=== PATIENT | male | born 1935 | race Caucasian/White ===

== ENCOUNTER → 2016-07-01 | Outpatient (CLI) | payer BC ==
[~2016-07-01] MED LIST: ACET-1257 PO; ALBUAER19 INH; ALUMSUS2; ASPCH81X PO; ATOR-24 PO; CALC500C3 PO; DUTA1CAP PO; DUTACAP PO; DXY100 PO; ELQ25 PO; FLNIN NAE; FLNIN/ NAE; HYDR25TA5 PO; LPR25 PO; LSX20 PO; MULT-506 PO; PANT40TA PO; POTA1CAP53 PO
== END | disposition home or self-care (01) ==
LOC: C.LABSPEC 11:07
PROVIDERS: ATTEND Internal Medicine Geriatric Medicine
DX: T81.4XXA Infection following a procedure, initial encounter (principal); X58.XXXA Exposure to other specified factors, initial encounter

== ENCOUNTER → 2016-07-17 | Outpatient (CLI) | payer BC ==
[2016-07-17 11:23] LABS: BASO % 0.5 %; BASO ABS # 0.03 K/uL (0-0.2); COMPLETE YES; EOS % 0.8 %; HEMATOCRIT 39.6 % (42-52); IG% 0.3 %; LYMPH ABS # 1.44 K/uL (1.2-3.4); MEAN CORPUSCULAR HEMOGLOBIN 26.7 pg (25-34); MEAN CORPUSCULAR HGB CONC 34.6 g/dl (32-36); MEAN PLATELET VOLUME 10.3 fL (7.4-10.4); MONO % 14.5 %; NEUT % 59.9 %; PLATELET COUNT 249 K/uL (130-400); RED BLOOD COUNT 5.14 M/uL (4.7-6.1); WHITE BLOOD COUNT 6.01 K/uL (4.8-10.8)
[2016-07-17 12:35] LABS: ALT/SGPT 28 U/L (12-78); BLOOD UREA NITROGEN 17 mg/dl (7-18); BUN/CREATININE RATIO 15.5 (10-20); CALCIUM 8.9 mg/dl (8.5-10.1); CARBON DIOXIDE 25 mmol/L (21-32); CHLORIDE 101 mmol/L (98-107); CHOLESTEROL 151 mg/dl (0-200); GLUCOSE 80 mg/dl (70-99); POTASSIUM 3.7 mmol/L (3.5-5.1); SODIUM 138 mmol/L (136-145); TRIGLYCERIDES 85 mg/dl (0-150); VERY LOW DENSITY LIPOPROT CALC 17 mg/dl
[2016-07-17 12:45] LABS: ALB/GLOB RATIO 1.1 (0.9-2); ALKALINE PHOSPHATASE 76 U/L (45-117); AST/SGOT 25 U/L (15-37); HDL CHOLESTEROL 50 mg/dl; LDL CHOLESTEROL CALCULATED 84 mg/dl
--- NOTE | 2016-07-28 13:12 | CODING QUERY MEDICAL NECESSITY ---
SUPPORTING DIAGNOSIS NEEDED A supporting diagnosis is required for the test/procedure performed on this patient in order for us to be reimbursed by the patient's insurance. Please provide a supporting diagnosis for the following test/procedure listed below next to the test name along with your signature. *If there is no additional diagnosis for this patient that would support the following test/procedure please document that below next to the test/procedure. Test(s)/Procedure(s) that require a supporting diagnosis: DOS 07/17 * Vitamin D DIAGNOSIS: * Vitamin B12 DIAGNOSIS: Provider Signature: Date: Thank you Magda Higgins Health Information Management Once completed, please kindly fax back to [phone] For questions please call [phone]
== END | disposition home or self-care (01) ==
LOC: C.LAB 10:29
PROVIDERS: ATTEND Internal Medicine Geriatric Medicine
DX: M10.9 Gout, unspecified (principal); I10 Essential (primary) hypertension; E78.5 Hyperlipidemia, unspecified; G62.9 Polyneuropathy, unspecified; I48.0 Paroxysmal atrial fibrillation; Z79.01 Long term (current) use of anticoagulants

== ENCOUNTER → 2016-07-19 | Outpatient (CLI) | payer BC ==
[2016-07-19 12:15] LABS: THYROID STIMULATING HORMONE 5.5 uIu/ml (0.300-4.500)
== END | disposition home or self-care (01) ==
LOC: C.LABBC 09:02
PROVIDERS: ATTEND Internal Medicine Geriatric Medicine
DX: R94.6 Abnormal results of thyroid function studies (principal)

== ENCOUNTER → 2016-10-07 | Outpatient (CLI) | payer BC ==
[2016-10-07 12:51] LABS: BASO % 0.8 %; BASO ABS # 0.05 K/uL (0-0.2); COMPLETE YES; EOS % 0.8 %; HEMATOCRIT 41.3 % (42-52); IG% 0.2 %; LYMPH % 24.7 %; LYMPH ABS # 1.47 K/uL (1.2-3.4); MEAN CELL VOLUME 80.7 fL (80-100); MEAN CORPUSCULAR HEMOGLOBIN 28.5 pg (25-34); MEAN CORPUSCULAR HGB CONC 35.4 g/dl (32-36); MEAN PLATELET VOLUME 10.6 fL (7.4-10.4); NEUT % 58.5 %; PLATELET COUNT 259 K/uL (130-400); RED BLOOD COUNT 5.12 M/uL (4.7-6.1); WHITE BLOOD COUNT 5.95 K/uL (4.8-10.8)
[2016-10-07 17:50] LABS: BLOOD UREA NITROGEN 14 mg/dl (7-18); BUN/CREATININE RATIO 14.9 (10-20); CALCIUM 8.6 mg/dl (8.5-10.1); CARBON DIOXIDE 29 mmol/L (21-32); CHLORIDE 101 mmol/L (98-107); CREATININE 0.93 mg/dl (0.60-1.40); GLUCOSE 91 mg/dl (70-99); SODIUM 137 mmol/L (136-145); URIC ACID 8.3 mg/dl (2.6-7.2)
== END | disposition home or self-care (01) ==
LOC: C.LABPBG 11:07
PROVIDERS: ATTEND Internal Medicine Geriatric Medicine
DX: M10.9 Gout, unspecified (principal); M19.90 Unspecified osteoarthritis, unspecified site; I48.0 Paroxysmal atrial fibrillation; I10 Essential (primary) hypertension; R94.6 Abnormal results of thyroid function studies

== ENCOUNTER → 2016-10-18 | Outpatient (CLI) | payer BC ==
--- NOTE | 2016-10-18 09:44 | DIAGNOSTIC IMAGING REPORT ---
CHEST 2 VIEWS ROUTINE CLINICAL HISTORY: COUGH COMPARISON STUDY: 04/14/2016 FINDINGS: The heart is the upper limits of normal in size. There are postsurgical changes of a midline sternotomy. There are postsurgical changes present within the cervical spine. There are postsurgical changes in the lumbar spine. There is no failure. There is no lobar consolidation. There is minor basilar atelectasis/scarring. No pleural effusions are visualized.[ IMPRESSION: No active disease in the chest. Electronically signed by: Shyam العراقي M.D. 10/18/2016 9:42 AM Dictated Date/Time: 10/18/2016 9:41 AM
== END | disposition home or self-care (01) ==
LOC: C.RADBC 09:11
PROVIDERS: ATTEND Internal Medicine
DX: J44.1 Chronic obstructive pulmonary disease with (acute) exacerbation (principal)

== ENCOUNTER 2016-12-29 21:57 | Emergency (ER) | payer BC ==
[~2016-12-29] VITALS: Ht 180.3 cm; Wt 107.4 kg
[~2016-12-29 21:57] MED LIST changes: -DUTA1CAP PO; -DXY100 PO; -FLNIN/ NAE; -LSX20 PO; -POTA1CAP53 PO
[2016-12-29 22:04] VITALS: Ht 180.3 cm; Wt 107.4 kg
[2016-12-29] MEDS ORDERED: SODIUM CHLORIDE 0.9% 1000ML 1,000 ML IV STA (22:14)
[2016-12-29 22:19] VITALS: O2SAT 93
[2016-12-29] MEDS ORDERED: ACETAMINOPHEN 500 MG TAB PO STA (22:37)
[2016-12-29] MEDS ORDERED: DUTA1CAP PO (22:38)
[2016-12-29] MEDS ORDERED: FLNIN/ NAE (22:38)
[2016-12-29] MEDS ORDERED: POTA1CAP53 PO (22:54)
[2016-12-29] MEDS ORDERED: LSX20 PO (22:54)
[2016-12-29 22:59] LABS: BASO % 0.8 %; BASO ABS # 0.05 K/uL (0-0.2); COMPLETE YES; HEMATOCRIT 39.7 % (42-52); IG% 0.3 %; LYMPH % 15.7 %; LYMPH ABS # 0.96 K/uL (1.2-3.4); MEAN CELL VOLUME 84.5 fL (80-100); MEAN CORPUSCULAR HEMOGLOBIN 29.6 pg (25-34); MEAN PLATELET VOLUME 10.7 fL (7.4-10.4); MONO % 15.2 %; PLATELET COUNT 202 K/uL (130-400); WHITE BLOOD COUNT 6.11 K/uL (4.8-10.8)
[2016-12-29 23:11] LABS: INR 1.3 (0.9-1.1); PARTIAL THROMBOPLASTIN RATIO 1.1; PROTHROMBIN TIME (PATIENT) 13.8 SECONDS (9.0-12.0)
[2016-12-29 23:19] LABS: ALT/SGPT 24 U/L (12-78); BLOOD UREA NITROGEN 13 mg/dl (7-18); BUN/CREATININE RATIO 13.5 (10-20); CARBON DIOXIDE 29 mmol/L (21-32); CHLORIDE 98 mmol/L (98-107); CREATININE 0.97 mg/dl (0.60-1.40); GLUCOSE 102 mg/dl (70-99); MAGNESIUM 1.9 mg/dl (1.8-2.4); POTASSIUM 3.1 mmol/L (3.5-5.1); SODIUM 136 mmol/L (136-145)
[2016-12-29 23:27] LABS: ALKALINE PHOSPHATASE 79 U/L (45-117); AST/SGOT 19 U/L (15-37); CKMB/CK RATIO 0.6 (0-3.0)
[2016-12-30 00:39] VITALS: TEMP 37.1
[2016-12-30 00:39] LABS: LYME DISEASE AB IGG NEG (NEG); LYME DISEASE AB IGM NEG (NEG)
[2016-12-30] MEDS ORDERED: SODIUM CHLORIDE 0.9% 500ML 500 ML IV STA (00:44)
[2016-12-30 01:15] LABS: URINE APPEARANCE CLEAR (CLEAR); URINE COLOR DK YELLOW; URINE EPITHELIAL CELL AUTO >30 /lpf (0-5); URINE NITRITE NEG (NEG); URINE SPECIFIC GRAVITY 1.023 (1.000-1.030); UROBILINOGEN POS (NEG)
[2016-12-30 01:19] LABS: MANUAL MICROSCOPIC REQUIRED? NO; REVIEW REQ? NO; URINE BILIRUBIN NEG (NEG)
[2016-12-30] MEDS ORDERED: EMPTY 8 DRAM VIAL ONE (01:27)
[2016-12-30] MEDS ORDERED: DOXYCYCLINE HYCLATE 100 MG CAP PO ONE ×2 (01:30)
[2016-12-30 01:31] VITALS: BP 124/77; PULSE 80; O2SAT 93
[2016-12-30] MEDS ORDERED: POTASSIUM CHLORIDE 10 MEQ TABCR PO STA (01:33)
[2016-12-30] MEDS ORDERED: DXY100 PO (01:38)
--- NOTE | 2016-12-30 03:03 | EMERGENCY ROOM VISIT NOTE ---
History Report prepared by Christopher: Fabby Carlson Under the Supervision of: Dr. Alexander Tao M.D. First contact with patient: 22:14 Chief Complaint: WEAKNESS Stated Complaint: EXHAUSTION Nursing Triage Summary: pt reports since fri feeling body aches tired and weak all over , increased sob with exertion , denies HAMMOND or cp History of Present Illness The patient is a 81 year old male who presents to the Emergency Room with complaints of persistent weakness for the past 4 days. He is accompanied by his . He states "I just feel real tired and have no energy". He also admits to diffuse body aches and increased shortness of breath with exertion. He is febrile on exam but states he feels pretty good here in the ED currently. The patient notes spends a lot of time outdoors and did receive a tick bite approximately 2 week ago. He states his PCP's office told him the bite was "nothing to worry about". His reports he saw a Mortician Investigator 1 week ago for a routine skin check and nothing abnormal was found. She also states he experienced a yeast rash in his groin 2 weeks ago but it has resolved. The patient has a history of atrial fibrillation and takes a daily baby Aspirin. Pt denies LOC, headache, chills, diaphoresis, visual changes, neck pain, chest pain , nausea, vomiting, abdominal pain, back pain, melena, hematochezia, urinary symptoms, numbness, lymphadenopathy, or other complaints. 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 A total of ten systems were reviewed and were otherwise negative. Past Medical & Surgical Medical Problems: (1) Afib (2) CVA (cerebral infarction) (3) HTN (hypertension) (4) Hyperlipidemia Family History Hypertension Stroke Social History Smoking Status: Never Smoker Alcohol Use: occasionally Drug Use: none Marital Status: Housing Status: lives with significant other Occupation Status: retired Current/Historical Medications Scheduled Aspirin (Aspirin Chewable), 81 MG PO QAM Atorvastatin (Lipitor), 40 MG PO QAM Doxycycline Hyclate (Doxycycline Hyclate), 100 MG PO BID Dutasteride-Tamsulosin HCl (Dutasteride/Tamsulosin Hy 0.5-0.4 mg), 1 TAB PO DAILY Fluticasone Propionate (Fluticasone Propionate), 1 SPRAY AMY DAILY Furosemide (Furosemide), 1 TAB PO QAM Hydrochlorothiazide (Hydrochlorothiazide), 25 MG PO QAM Metoprolol Tartrate (Lopressor), 25 MG PO BID Pantoprazole (Protonix), 40 MG PO QAM Potassium Chloride (Klor-Con Sprinkle), 1 CAP PO DAILY Allergies Coded Allergies: Dipyridamole (Verified Allergy, Intermediate, Passed out, 12/29/16) Patient fainted Physical Exam Vital Signs Date Time Temp Pulse Resp B/P (MAP) Pulse Ox O2 Delivery O2 Flow Rate FiO2 12/30/16 01:31 80 21 124/77 93 Room Air 12/30/16 00:39 37.1 84 14 116/71 94 Room Air 12/29/16 23:36 104 24 91 12/29/16 23:31 143/78 12/29/16 23:06 96 24 93 12/29/16 23:01 136/72 12/29/16 22:57 98 21 94 12/29/16 22:35 141/88 12/29/16 22:27 102 30 12/29/16 22:25 98 12/29/16 22:22 132/83 12/29/16 22:19 93 Room Air 12/29/16 22:04 37.7 96 20 135/89 96 Room Air Physical Exam GENERAL: Awake, alert, well-appearing, in no distress HENT: Normocephalic, atraumatic. Oropharynx unremarkable. EYES: Mild erythema to the conjunctiva. Sclera non-icteric. NECK: Supple. No nuchal rigidity. FROM. No JVD. RESPIRATORY: Clear to auscultation. CARDIAC: Regular rate, normal rhythm. Extremities warm and well perfused. Pulses equal. ABDOMEN: Soft, non-distended. No tenderness to palpation. No rebound or guarding. No masses. RECTAL: Deferred. MUSCULOSKELETAL: Chest examination reveals no tenderness. The back is symmetrical on inspection without obvious abnormality. There is no CVA tenderness to palpation. No joint edema. LOWER EXTREMITIES: Calves are equal size bilaterally and non-tender. No edema. No discoloration. NEURO: Normal sensorium. No sensory or motor deficits noted. SKIN: No rash or jaundice noted. Medical Decision & Procedures ER Provider Diagnostic Interpretation: Radiology results as stated below per my review and interpretation: Chest x-ray. Findings: A chest x-ray was performed and revealed no pneumothorax , effusion, infiltrate, pulmonary edema, free air under the diaphragm, or wide mediastinum. Laboratory Results 12/29/16 22:30 Red Blood Count 4.70, Mean Corpuscular Volume 84.5, Mean Corpuscular Hemoglobin 29.6, Mean Corpuscular Hemoglobin Concent 35.0, Mean Platelet Volume 10.7, Neutrophils (%) (Auto) 68.0, Lymphocytes (%) (Auto) 15.7, Monocytes (%) (Auto) 15.2, Eosinophils (%) (Auto) 0.0, Basophils (%) (Auto) 0.8, Neutrophils # (Auto ) 4.15, Lymphocytes # (Auto) 0.96, Monocytes # (Auto) 0.93, Eosinophils # (Auto ) 0.00, Basophils # (Auto) 0.05 12/29/16 22:30 Test 12/29/16 22:30 12/29/16 22:40 12/30/16 01:00 White Blood Count 6.11 K/uL (4.8-10.8) Red Blood Count 4.70 M/uL (4.7-6.1) Hemoglobin 13.9 g/dL (14.0-18.0) Hematocrit 39.7 % (42-52) Mean Corpuscular Volume 84.5 fL (80-100) Mean Corpuscular Hemoglobin 29.6 pg (25-34) Mean Corpuscular Hemoglobin Concent 35.0 g/dl (32-36) Platelet Count 202 K/uL (130-400) Mean Platelet Volume 10.7 fL (7.4-10.4) Neutrophils (%) (Auto) 68.0 % Lymphocytes (%) (Auto) 15.7 % Monocytes (%) (Auto) 15.2 % Eosinophils (%) (Auto) 0.0 % Basophils (%) (Auto) 0.8 % Neutrophils # (Auto) 4.15 K/uL (1.4-6.5) Lymphocytes # (Auto) 0.96 K/uL (1.2-3.4) Monocytes # (Auto) 0.93 K/uL (0.11-0.59) Eosinophils # (Auto) 0.00 K/uL (0-0.5) Basophils # (Auto) 0.05 K/uL (0-0.2) RDW Standard Deviation 43.8 fL (36.4-46.3) RDW Coefficient of Variation 14.1 % (11.5-14.5) Immature Granulocyte % (Auto) 0.3 % Immature Granulocyte # (Auto) 0.02 K/uL (0.00-0.02) Prothrombin Time 13.8 SECONDS (9.0-12.0) Prothromb Time International Ratio 1.3 (0.9-1.1) Activated Partial Thromboplast Time 27.8 SECONDS (21.0-31.0) Partial Thromboplastin Ratio 1.1 Anion Gap 9.0 mmol/L (3-11) Est Creatinine Clear Calc Drug Dose 77.0 ml/min Estimated GFR () 85.7 Estimated GFR (Non- 73.9 BUN/Creatinine Ratio 13.5 (10-20) Calcium Level 9.0 mg/dl (8.5-10.1) Magnesium Level 1.9 mg/dl (1.8-2.4) Total Bilirubin 1.0 mg/dl (0.2-1) Direct Bilirubin 0.3 mg/dl (0-0.2) Aspartate Amino Transf (AST/SGOT) 19 U/L (15-37) Alanine Aminotransferase (ALT/SGPT) 24 U/L (12-78) Alkaline Phosphatase 79 U/L (45-117) Total Creatine Kinase 172 U/L (39-308) Creatine Kinase MB 1.1 ng/ml (0.5-3.6) Creatine Kinase MB Ratio 0.6 (0-3.0) Troponin I < 0.015 ng/ml (0-0.045) Total Protein 7.2 gm/dl (6.4-8.2) Albumin 3.6 gm/dl (3.4-5.0) Lipase 109 U/L (73-393) Thyroid Stimulating Hormone (TSH) 5.190 uIu/ml (0.300-4.500) Lyme Disease IgG Antibody NEG (NEG) Lyme Disease IgM Antibody NEG (NEG) Bedside Lactic Acid Venous 1.10 mmol/L (0.90-1.70) Urine Color DK YELLOW Urine Appearance CLEAR (CLEAR) Urine pH 7.0 (4.5-7.5) Urine Specific [place] 1.023 (1.000-1.030) Urine Protein 1+ (NEG) Urine Glucose (UA) NEG (NEG) Urine Ketones TRACE (NEG) Urine Occult Blood TRACE (NEG) Urine Nitrite NEG (NEG) Urine Bilirubin NEG (NEG) Urine Urobilinogen POS (NEG) Urine Leukocyte Esterase NEG (NEG) Urine WBC (Auto) 1-5 /hpf (0-5) Urine RBC (Auto) 5-10 /hpf (0-4) Urine Hyaline Casts (Auto) 1-5 /lpf (0-5) Urine Epithelial Cells (Auto) >30 /lpf (0-5) Urine Bacteria (Auto) NEG (NEG) Laboratory results reviewed by me Medications Administered Medications (Trade) Dose Ordered Sig/Dena Route Start Time Stop Time Status Last Admin Dose Admin Sodium Chloride 1,000 ml @ 125 mls/hr Q8H STAT IV 12/29/16 22:14 12/30/16 01:54 DC 12/29/16 22:56 125 MLS/HR Acetaminophen (Tylenol Tab) 1,000 mg NOW STAT PO 12/29/16 22:37 12/29/16 22:38 DC 12/29/16 22:56 1,000 MG Sodium Chloride 500 ml @ 999 mls/hr Q31M STAT IV 12/30/16 00:44 12/30/16 01:14 DC 12/30/16 00:47 999 MLS/HR Doxycycline Hyclate (Vibramycin Cap) 100 mg ONE ONCE PO 12/30/16 01:30 12/30/16 01:31 DC 12/30/16 01:29 100 MG Doxycycline Hyclate (Vibramycin Cap) 200 mg ONE ONCE PO 12/30/16 01:30 12/30/16 01:31 DC 12/30/16 01:29 200 MG Potassium Chloride (Klor-Con M10) 20 meq NOW STAT PO 12/30/16 01:33 12/30/16 01:34 DC 12/30/16 01:36 20 MEQ ECG Indication: weakness Rate (beats per minute): 87 Rhythm: atrial fibrillation Findings: PVC, Q waves (Inferior), RBBB, no acute ischemic change ED Course 4: NSS 1000 ml @ 125 mls/hr IV. 2232: The patient was evaluated in room C9. A complete history and physical exam was performed. 2237: Acetaminophen 1000 mg PO. 0044: NSS 500 ml @ 999 mls/hr IV. 0050: I reevaluated the patient. He is feeling better and resting comfortably. 0120: I reevaluated the patient. He is feeling well. I discussed his test results and discharge instructions and he verbalized complete understanding and agreement. 0130: Vibramycin 200 mg PO, Vibramycin 100 mg PO. 0133: Potassium Chloride 20 meq PO. Medical Decision Medication Reconciliation: I attest that I have personally reviewed the patient' s current medication list. Blood pressure screening: Patient was found to have normal blood pressure on screening and does not require follow-up. Triage Nursing notes reviewed. The patient's presentation and history were concerning for weakness and fatigue along with fevers and chills. Etiologies such as metabolic, infection, Lyme disease, hypo/hyperglycemia, electrolyte abnormalities, cardiac sources, intracerebral event, toxicologic, neurologic, as well as others were entertained. The patient was evaluated. He was doing well. He had a borderline temperature elevation. Blood work was obtained. Cultures obtained. He was hydrated. He was given Tylenol. Reassessment he felt much better. Chest x-ray did not reveal any obvious findings of pneumonia. He has had minimal if any cough. The patient had a benign abdomen. He denied any abdominal discomfort. His urinalysis did not reveal any clear evidence of infection. He denied any urinary symptoms. The patient has had numerous tick bites. He states he spends a lot of time out in [place]. His symptoms seem to be consistent with early Lyme disease. It is possible that his Lyme titers not yet positive given the short duration since onset. I discussed conservative only starting him on doxycycline and having him follow-up with his primary physician. He'll take a probiotic. He and his agree. The patient's blood pressure was good. His ECG revealed no significant abnormalities. He is in an A. fib but the patient has is chronically. If he worsens in any way he will be back to the emergency department. Cultures are pending. The patient will contact his primary office the day after tomorrow, December 31 and set up a follow-up and repeat Lyme's test. The patient has had C. difficile in the past and therefore I do not want to commit him to a full course of antibiotic without confirmation. I did spend a lot of time discussing this. The patient and felt comfortable. I gave my usual and customary discussion regarding this issue. By the evaluation outlined above other emergent etiologies such as those listed in the differential, as well as others, were deemed relatively unlikely. The patient was educated about the findings as listed above. All questions were answered and the patient was pleased with the treatment. Return instructions were outlined and the patient was discharged in stable condition. The patient was referred to his PCP for follow-up for a recheck of the current condition. Impression Primary Impression: Weakness Additional Impressions: Fever Chills Scribe Attestation The scribe's documentation has been prepared under my direction and personally reviewed by me in its entirety. I confirm that the note above accurately reflects all work, treatment, procedures, and medical decision making performed by me. Departure Information Dispostion Home / Self-Care Prescriptions Doxycycline Hyclate (Doxycycline Hyclate) 100 Mg Cap 100 MG PO BID for 7 Days, #14 CAP Prov: Alexander Tao MD 12/30/16 Referrals Alen Newman M.D. (PCP) Patient Instructions My [facility] Additional Instructions Doxycycline 100mg: Take one pill twice daily for 7 days. Take with food, but avoid dairy. Avoid prolonged sun exposure since this medication makes you temporarily more susceptible to sunburns. All antibiotics can cause diarrhea. If this occurs and you feel worse or it does not resolve in 1-2 days follow up with your doctor or return to the Emergency Department as this could be signs of serious underlying problems. Any medication can cause an allergic reaction, stop the pills immediately and return to the ER for rash, hives, breathing difficulties, or swelling. Take a probiotic as discussed. Review the package insert for all your medications. This is necessary as important health information is provided for your benefit and current care. Acetaminophen(Tylenol) may be used for fever or pain. Use 1000mg every six hours as needed. Avoid using more than 4000mg in a 24 hour period. Rest and drink plenty of fluids. Avoid strenuous activity until your symptoms resolve and your breathing returns to normal. Return to the ER for chest pain, difficulty breathing, persistent fevers, vomiting, worsening of your condition, or as needed. Follow up with your primary physician on Thursday to schedule an appointment for a recheck of the current condition by the end of the week or next Thursday at the latest so that a repeat can be done on the Lyme test. If this is positive the primary office will need to continue the doxycycline. Problem Qualifiers
--- NOTE | 2016-12-30 10:19 | DIAGNOSTIC IMAGING REPORT ---
SINGLE VIEW CHEST CLINICAL HISTORY: Generalized weakness. FINDINGS: An AP, portable, upright chest radiograph is compared to study dated 10/18/2016 and correlated with chest CT dated 12/24/2015. The examination is degraded by portable technique, apical lordotic positioning, and patient rotation. The patient is status post midline sternotomy. The heart is enlarged and there is atherosclerotic calcification of the thoracic aorta. The pulmonary vasculature is noncongested. Chronic interstitial thickening is similar to previous. There is mild bibasilar atelectasis. The lungs and pleural spaces are otherwise clear. No pneumothorax is seen. The skeletal structures are osteopenic. The bony thorax is grossly intact. Fusion hardware is present in the lower cervical spine. IMPRESSION: Cardiomegaly with no acute cardiopulmonary abnormality. Electronically signed by: Julio C Slater M.D. 12/30/2016 10:18 AM Dictated Date/Time: 12/30/2016 10:16 AM
== END 2016-12-30 01:40 | disposition home or self-care (01) ==
LOC: C.EDB 21:59 → C.EDC 12-30 01:40
DX: R53.1 Weakness (principal); R50.9 Fever, unspecified; I48.91 Unspecified atrial fibrillation; Z86.73 Personal history of transient ischemic attack (TIA), and cerebral infarction without residual deficits; I10 Essential (primary) hypertension; E78.5 Hyperlipidemia, unspecified; Z82.49 Family history of ischemic heart disease and other diseases of the circulatory system; Z79.82 Long term (current) use of aspirin; Z79.899 Other long term (current) drug therapy; R11.0 Nausea; R53.83 Other fatigue; E87.6 Hypokalemia

== ENCOUNTER 2016-12-30 17:42 | Emergency (ER) | payer BC ==
[~2016-12-30] VITALS: Ht 180.3 cm; Wt 106.7 kg
[~2016-12-30 17:42] MED LIST changes: -ACET-1257 PO; -ALBUAER19 INH; -ALUMSUS2; -CALC500C3 PO; +DUTA1CAP PO; -DUTACAP PO; +DXY100 PO; -ELQ25 PO; -FLNIN NAE; +FLNIN/ NAE; +LSX20 PO; -MULT-506 PO; +POTA1CAP53 PO
[2016-12-30 17:46] VITALS: TEMP 37; Ht 180.3 cm; Wt 106.7 kg
[2016-12-30] MEDS ORDERED: SODIUM CHLORIDE 0.9% 1000ML 1,000 ML IV STA (17:58)
[2016-12-30 18:17] VITALS: O2SAT 92
[2016-12-30 18:47] LABS: BASO % 0.1 %; BASO ABS # 0.01 K/uL (0-0.2); COMPLETE YES; HEMATOCRIT 40.1 % (42-52); IG% 0.1 %; LYMPH % 10.2 %; LYMPH ABS # 0.69 K/uL (1.2-3.4); MEAN CELL VOLUME 84.1 fL (80-100); MEAN CORPUSCULAR HEMOGLOBIN 29.1 pg (25-34); MEAN CORPUSCULAR HGB CONC 34.7 g/dl (32-36); MONO % 11.6 %; PLATELET COUNT 197 K/uL (130-400); RED BLOOD COUNT 4.77 M/uL (4.7-6.1); WHITE BLOOD COUNT 6.74 K/uL (4.8-10.8)
[2016-12-30 18:51] LABS: URINE APPEARANCE CLEAR (CLEAR); URINE BILIRUBIN NEG (NEG); URINE COLOR DK YELLOW; URINE NITRITE NEG (NEG); URINE PH 5.5 (4.5-7.5); URINE SPECIFIC GRAVITY 1.019 (1.000-1.030); UROBILINOGEN NEG (NEG)
[2016-12-30 18:54] LABS: MANUAL MICROSCOPIC REQUIRED? NO; REVIEW REQ? NO
[2016-12-30 18:57] LABS: INR 1.3 (0.9-1.1); PARTIAL THROMBOPLASTIN RATIO 1.1; PROTHROMBIN TIME (PATIENT) 14.3 SECONDS (9.0-12.0)
[2016-12-30 19:07] LABS: ALT/SGPT 28 U/L (12-78); AST/SGOT 23 U/L (15-37); BLOOD UREA NITROGEN 12 mg/dl (7-18); BUN/CREATININE RATIO 11.8 (10-20); CALCIUM 8.6 mg/dl (8.5-10.1); CARBON DIOXIDE 30 mmol/L (21-32); CHLORIDE 99 mmol/L (98-107); GLUCOSE 104 mg/dl (70-99); MAGNESIUM 1.7 mg/dl (1.8-2.4); POTASSIUM 3.1 mmol/L (3.5-5.1); SODIUM 136 mmol/L (136-145)
[2016-12-30 19:15] LABS: ALKALINE PHOSPHATASE 79 U/L (45-117); CKMB/CK RATIO 0.7 (0-3.0)
--- NOTE | 2016-12-30 19:29 | DIAGNOSTIC IMAGING REPORT ---
ULTRASOUND RIGHT UPPER QUADRANT ABDOMEN CLINICAL HISTORY: Fever. Nausea. COMPARISON STUDY: Abdominal ultrasound dated 01/01/2016. Abdominal CT dated 07/14/2014. TECHNIQUE: Real-time, grayscale, and color flow sonography of the right upper quadrant of the abdomen was performed. Images are reviewed in the transverse and longitudinal planes. FINDINGS: Liver: The liver is normal in size and echotexture. There is no intrahepatic biliary ductal dilatation. The main portal vein is patent. Gallbladder: The gallbladder is normal in appearance. No gallstones are identified. There is no gallbladder wall thickening or pericholecystic fluid. A sonographic Olvera's sign is reportedly absent. The common bile duct measures up to 0.4 cm in diameter. Pancreas: Not well visualized due to overlying bowel gas. Right kidney: Survey images of the right kidney demonstrate cortical atrophy. There is no hydronephrosis. A 1.5 cm cyst is again seen in the right lower pole. A 2.3 cm nodule above the right kidney is unchanged from previous and likely represents the patient's known adrenal adenoma. Ascites: None. IMPRESSION: No acute sonographic abnormality is identified in the right upper quadrant. No gallstones are seen. Electronically signed by: Julio C Slater M.D. 12/30/2016 7:27 PM Dictated Date/Time: 12/30/2016 7:25 PM
[2016-12-30] MEDS ORDERED: POTASSIUM CHLORIDE 10 MEQ TABCR PO STA (21:06)
[2016-12-30 21:07] VITALS: O2SAT 91
[2016-12-30] MEDS ORDERED: METOPROLOL TARTRATE 25 MG TAB PO STA (21:11)
[2016-12-30 21:48] VITALS: BP 142/79; PULSE 98
--- NOTE | 2016-12-31 02:39 | EMERGENCY ROOM VISIT NOTE ---
History Report prepared by Christopher: Jolanta Steel Under the Supervision of: Dr. Alexander Tao M.D. First contact with patient: 17:51 Chief Complaint: OTHER COMPLAINT Stated Complaint: EXHAUSTED SINCE FRIDAY 12/29 AND12/30, NAUSEATED History of Present Illness The patient is a 81 year old male who presents to the Emergency Room with complaints of persistent nausea over the past five days. Per records, the patient was evaluated in the emergency department for weakness and fatigue for the previous four days. He noted body aches, and multiple tick bites in the past, noting that the most recent was two weeks ago. The patient had blood work performed that showed mild hypokalemia, negative cardiac markers, negative Lyme, and negative urinalysis. Due to the duration of his symptoms, he was started on Doxycycline for possible Lyme Disease. The patient states that this morning he woke up feeling okay, but as the day went on, his nausea progressed. He states that he still feels fatigued, exhausted, and notes that he has low energy. The patient reports slight abdominal pain due to his nausea. He states that he took his Doxycycline today with crackers. The patient states that he has had a fairly normal appetite. He denies any history of abdominal surgeries. Today, the patient reports a slight fever, chills, and rhinorrhea. Pt denies LOC, headache, diaphoresis, visual changes, neck pain, chest pain, breathing difficulties, vomiting, back pain, melena, hematochezia, urinary symptoms, numbness, weakness, lymphadenopathy, rash, or other complaints. Source of History: patient Onset: five days Position: other (global) Quality: other (nausea) Timing: other (persistent) Associated Symptoms: + fevers, + chills, + abdominal pain, + fatigue Note: Associated Symptoms: exhaustion, low energy, rhinorrhea. Review of Systems See HPI for pertinent positives and negatives. A total of ten systems were reviewed and were otherwise negative. Past Medical & Surgical Medical Problems: (1) Afib (2) CVA (cerebral infarction) (3) HTN (hypertension) (4) Hyperlipidemia Family History Hypertension Stroke Social History Smoking Status: Former Smoker Alcohol Use: occasionally Drug Use: none Marital Status: Housing Status: lives with significant other Occupation Status: retired Current/Historical Medications Scheduled Aspirin (Aspirin Chewable), 81 MG PO QAM Atorvastatin (Lipitor), 40 MG PO QAM Doxycycline Hyclate (Doxycycline Hyclate), 100 MG PO BID Dutasteride-Tamsulosin HCl (Dutasteride/Tamsulosin Hy 0.5-0.4 mg), 1 TAB PO DAILY Fluticasone Propionate (Fluticasone Propionate), 1 SPRAY AMY DAILY Furosemide (Furosemide), 1 TAB PO QAM Hydrochlorothiazide (Hydrochlorothiazide), 25 MG PO QAM Metoprolol Tartrate (Lopressor), 25 MG PO BID Pantoprazole (Protonix), 40 MG PO QAM Potassium Chloride (Klor-Con Sprinkle), 1 CAP PO DAILY Allergies Coded Allergies: Dipyridamole (Verified Allergy, Intermediate, Passed out, 12/30/16) Patient fainted Physical Exam Vital Signs Date Time Temp Pulse Resp B/P (MAP) Pulse Ox O2 Delivery O2 Flow Rate FiO2 12/30/16 21:48 98 20 142/79 12/30/16 21:07 104 150/99 91 Room Air 12/30/16 19:25 101 12/30/16 19:21 104 20 141/103 91 Room Air 12/30/16 18:41 92 Room Air 12/30/16 18:33 73 168/100 94 Room Air 87 135/95 107 133/84 12/30/16 18:17 92 Room Air 12/30/16 17:46 37.0 105 18 131/76 93 Room Air Physical Exam GENERAL: Awake, alert, tired-appearing, in no distress HENT: Normocephalic, atraumatic. Oropharynx unremarkable. EYES: Normal conjunctiva. Sclera non-icteric. NECK: Supple. No nuchal rigidity. FROM. No JVD. RESPIRATORY: Clear to auscultation. CARDIAC: Borderline tachycardic rate and irregular rhythm. Extremities warm and well perfused. Pulses equal. ABDOMEN: Soft, non-distended. No tenderness to palpation. No rebound or guarding. No masses. RECTAL: Deferred. MUSCULOSKELETAL: Chest examination reveals no tenderness. The back is symmetrical on inspection without obvious abnormality. There is no CVA tenderness to palpation. No joint edema. LOWER EXTREMITIES: Calves are equal size bilaterally and non-tender. No edema. No discoloration. NEURO: Normal sensorium. No sensory or motor deficits noted. SKIN: No rash or jaundice noted. Medical Decision & Procedures ER Provider Diagnostic Interpretation: Radiology results as stated below per my review and radiologist interpretation: ULTRASOUND RIGHT UPPER QUADRANT ABDOMEN CLINICAL HISTORY: Fever. Nausea. COMPARISON STUDY: Abdominal ultrasound dated 01/01/2016. Abdominal CT dated 07/14/2014. TECHNIQUE: Real-time, grayscale, and color flow sonography of the right upper quadrant of the abdomen was performed. Images are reviewed in the transverse and longitudinal planes. FINDINGS: Liver: The liver is normal in size and echotexture. There is no intrahepatic biliary ductal dilatation. The main portal vein is patent. Gallbladder: The gallbladder is normal in appearance. No gallstones are identified. There is no gallbladder wall thickening or pericholecystic fluid. A sonographic Olvera's sign is reportedly absent. The common bile duct measures up to 0.4 cm in diameter. Pancreas: Not well visualized due to overlying bowel gas. Right kidney: Survey images of the right kidney demonstrate cortical atrophy. There is no hydronephrosis. A 1.5 cm cyst is again seen in the right lower pole. A 2.3 cm nodule above the right kidney is unchanged from previous and likely represents the patient's known adrenal adenoma. Ascites: None. IMPRESSION: No acute sonographic abnormality is identified in the right upper quadrant. No gallstones are seen. Electronically signed by: Julio C Slater M.D. 12/30/2016 7:27 PM Dictated Date/Time: 12/30/2016 7:25 PM Laboratory Results 12/30/16 18:23 Red Blood Count 4.77, Mean Corpuscular Volume 84.1, Mean Corpuscular Hemoglobin 29.1, Mean Corpuscular Hemoglobin Concent 34.7, Mean Platelet Volume 10.0, Neutrophils (%) (Auto) 78.0, Lymphocytes (%) (Auto) 10.2, Monocytes (%) (Auto) 11.6, Eosinophils (%) (Auto) 0.0, Basophils (%) (Auto) 0.1, Neutrophils # (Auto ) 5.25, Lymphocytes # (Auto) 0.69, Monocytes # (Auto) 0.78, Eosinophils # (Auto ) 0.00, Basophils # (Auto) 0.01 12/30/16 18:23 Test 12/30/16 18:23 White Blood Count 6.74 K/uL (4.8-10.8) Red Blood Count 4.77 M/uL (4.7-6.1) Hemoglobin 13.9 g/dL (14.0-18.0) Hematocrit 40.1 % (42-52) Mean Corpuscular Volume 84.1 fL (80-100) Mean Corpuscular Hemoglobin 29.1 pg (25-34) Mean Corpuscular Hemoglobin Concent 34.7 g/dl (32-36) Platelet Count 197 K/uL (130-400) Mean Platelet Volume 10.0 fL (7.4-10.4) Neutrophils (%) (Auto) 78.0 % Lymphocytes (%) (Auto) 10.2 % Monocytes (%) (Auto) 11.6 % Eosinophils (%) (Auto) 0.0 % Basophils (%) (Auto) 0.1 % Neutrophils # (Auto) 5.25 K/uL (1.4-6.5) Lymphocytes # (Auto) 0.69 K/uL (1.2-3.4) Monocytes # (Auto) 0.78 K/uL (0.11-0.59) Eosinophils # (Auto) 0.00 K/uL (0-0.5) Basophils # (Auto) 0.01 K/uL (0-0.2) RDW Standard Deviation 43.2 fL (36.4-46.3) RDW Coefficient of Variation 14.0 % (11.5-14.5) Immature Granulocyte % (Auto) 0.1 % Immature Granulocyte # (Auto) 0.01 K/uL (0.00-0.02) Prothrombin Time 14.3 SECONDS (9.0-12.0) Prothromb Time International Ratio 1.3 (0.9-1.1) Activated Partial Thromboplast Time 29.0 SECONDS (21.0-31.0) Partial Thromboplastin Ratio 1.1 Urine Color DK YELLOW Urine Appearance CLEAR (CLEAR) Urine pH 5.5 (4.5-7.5) Urine Specific [place] 1.019 (1.000-1.030) Urine Protein 1+ (NEG) Urine Glucose (UA) NEG (NEG) Urine Ketones NEG (NEG) Urine Occult Blood 1+ (NEG) Urine Nitrite NEG (NEG) Urine Bilirubin NEG (NEG) Urine Urobilinogen NEG (NEG) Urine Leukocyte Esterase NEG (NEG) Urine WBC (Auto) 1-5 /hpf (0-5) Urine RBC (Auto) 0-4 /hpf (0-4) Urine Hyaline Casts (Auto) 0 /lpf (0-5) Urine Epithelial Cells (Auto) 5-10 /lpf (0-5) Urine Bacteria (Auto) NEG (NEG) Anion Gap 7.0 mmol/L (3-11) Est Creatinine Clear Calc Drug Dose 74.4 ml/min Estimated GFR () 82.6 Estimated GFR (Non- 71.3 BUN/Creatinine Ratio 11.8 (10-20) Calcium Level 8.6 mg/dl (8.5-10.1) Magnesium Level 1.7 mg/dl (1.8-2.4) Total Bilirubin 1.0 mg/dl (0.2-1) Direct Bilirubin 0.3 mg/dl (0-0.2) Aspartate Amino Transf (AST/SGOT) 23 U/L (15-37) Alanine Aminotransferase (ALT/SGPT) 28 U/L (12-78) Alkaline Phosphatase 79 U/L (45-117) Total Creatine Kinase 161 U/L (39-308) Creatine Kinase MB 1.2 ng/ml (0.5-3.6) Creatine Kinase MB Ratio 0.7 (0-3.0) Troponin I < 0.015 ng/ml (0-0.045) Pro-B-Type Natriuretic Peptide 1216 pg/ml (0-1800) Total Protein 7.4 gm/dl (6.4-8.2) Albumin 3.5 gm/dl (3.4-5.0) Lipase 98 U/L (73-393) Thyroid Stimulating Hormone (TSH) 3.940 uIu/ml (0.300-4.500) Laboratory results reviewed by me Medications Administered Medications (Trade) Dose Ordered Sig/Dena Route Start Time Stop Time Status Last Admin Dose Admin Sodium Chloride 1,000 ml @ 125 mls/hr Q8H STAT IV 12/30/16 17:58 12/30/16 22:31 DC 12/30/16 19:14 125 MLS/HR Potassium Chloride (Klor-Con M10) 40 meq NOW STAT PO 12/30/16 21:06 12/30/16 21:07 DC 12/30/16 21:17 40 MEQ Metoprolol Tartrate (Lopressor Tab) 25 mg NOW STAT PO 12/30/16 21:11 12/30/16 21:12 DC 12/30/16 21:18 25 MG ECG Indication: nausea Rate (beats per minute): 100 Rhythm: atrial fibrillation Findings: PVC, Q waves (Inferior), RBBB ED Course 1756: The patient was evaluated in room A11B. A complete history and physical exam was performed. 1757: Ordered Sodium Chloride 1000 ml @ 125 mls/hr IV. 2013: I reevaluated the patient and he is feeling well. 2105: Ordered Potassium Chloride 40 meq PO. 2107: I reevaluated the patient and he is feeling fine other than his nausea. I discussed all the exam findings with him and I discussed the treatment plan. He verbalized complete understanding and agreement. He will be ready for discharge shortly. 2110: Ordered Lopressor Tab 25 mg PO. Medical Decision Medication Reconciliation: I attest that I have personally reviewed the patient' s current medication list Blood pressure screening: Patient was found to have an elevated blood pressure and was referred to their primary doctor for recheck and further treatment. Triage Nursing notes reviewed. The patient's presentation and history were concerning for nausea and malaise. Etiologies such as medication side effect, metabolic, infection, hypo/ hyperglycemia, electrolyte abnormalities, cardiac sources, intracerebral event, toxicologic, neurologic, as well as others were entertained. The patient was evaluated. Clinically was doing well. His heart rate was slightly increased compared to yesterday. He had some nausea today and that was the driving for friend, dementia department. When specifically asked he only had a cracker with taking his doxycycline. He did not Emergency Room the anything today. The patient had blood work obtained. He had a stable anemia on CBC. His potassium was low again and this was repleted. Magnesium, BNP, troponin, LFTs, TSH, coags, and urinalysis were unremarkable. The patient had some fluctuation of blood pressure with orthostatic testing but was not symptomatic. He was able to ambulate without any hypoxia. I did perform a right upper quadrant ultrasound and this did not reveal any significant findings. The patient was observed for several hours and did very well. He was given potassium as well as his evening blood pressure medication which she was overdue for. This may explain why he had a slight increase and his A. fib rate. The patient does not have any strokelike symptoms. His main issue is he has been tired and now had the nausea. It is very likely that the doxycycline was the cause of the nausea as he had no significant food intake with it. So I discussed holding the doxycycline. As the patient is doing very well and is asymptomatic at this time he feels comfortable as does his with going home and calling his primary office tomorrow. I do believe he should have a repeat Lyme titer performed but he should hold the doxycycline until this happened. If he worsens in any way he will come back to the emergency department for reevaluation.I gave my usual and customary discussion regarding this issue. By the evaluation outlined above other emergent etiologies such as those listed in the differential, as well as others, were deemed relatively unlikely. The patient was educated about the findings as listed above. All questions were answered and the patient was pleased with the treatment. Return instructions were outlined and the patient was discharged in stable condition. The patient was referred to his PCP for follow-up for a recheck of the current condition. Impression Primary Impression: Nausea Additional Impressions: Fatigue Hypokalemia Scribe Attestation The scribe's documentation has been prepared under my direction and personally reviewed by me in its entirety. I confirm that the note above accurately reflects all work, treatment, procedures, and medical decision making performed by me. Departure Information Dispostion Home / Self-Care Referrals Alen Newman M.D. (PCP) Forms HOME CARE DOCUMENTATION FORM, IMPORTANT VISIT INFORMATION, WORK / SCHOOL INSTRUCTIONS Patient Instructions My [facility] Additional Instructions Hold the doxycycline. Follow-up with your primary office tomorrow to schedule an appointment. Discuss the repeat Lyme testing. Tylenol: Take 1000 mg every 6 hours as needed for pain. Do not take more than 3000 mg in a 24 hour period. Continue current medications Return to the ER for headache, vomiting, chest pain, passing out, difficulty breathing, fevers, numbness, tingling, worsening of your condition, or as needed. Problem Qualifiers
== END 2016-12-30 22:08 | disposition home or self-care (01) ==
LOC: C.EDB 17:44 → C.EDA 22:08
DX: R11.0 Nausea (principal); R53.83 Other fatigue; E87.6 Hypokalemia; I48.91 Unspecified atrial fibrillation; Z86.73 Personal history of transient ischemic attack (TIA), and cerebral infarction without residual deficits; I10 Essential (primary) hypertension; E78.5 Hyperlipidemia, unspecified; Z82.49 Family history of ischemic heart disease and other diseases of the circulatory system; Z87.891 Personal history of nicotine dependence; Z79.82 Long term (current) use of aspirin

== ENCOUNTER → 2017-01-01 | Outpatient (CLI) | payer BC ==
[2017-01-01 17:15] LABS: BLOOD UREA NITROGEN 14 mg/dl (7-18); BUN/CREATININE RATIO 12.5 (10-20); CALCIUM 9.1 mg/dl (8.5-10.1); CARBON DIOXIDE 29 mmol/L (21-32); CHLORIDE 96 mmol/L (98-107); GLUCOSE 86 mg/dl (70-99); POTASSIUM 3.3 mmol/L (3.5-5.1); SODIUM 134 mmol/L (136-145)
[2017-01-01 18:12] LABS: LYME DISEASE AB IGG NEG (NEG)
[2017-01-01 18:20] LABS: LYME DISEASE AB IGM POS (NEG)
[2017-01-07 19:16] LABS: 18KDIGG BAND NONREACTIVE (NONREACTIVE); 23KDIGG BAND NONREACTIVE (NONREACTIVE); 23KDIGM BAND REACTIVE (NONREACTIVE); 28KDIGG BAND NONREACTIVE (NONREACTIVE); 30KDIGG BAND NONREACTIVE (NONREACTIVE); 39KDIGG BAND NONREACTIVE (NONREACTIVE); 39KDIGM BAND NONREACTIVE (NONREACTIVE); 41KDIGG BAND REACTIVE (NONREACTIVE); 41KDIGM BAND NONREACTIVE (NONREACTIVE); 45KDIGG BAND REACTIVE (NONREACTIVE); 58KDIGG BAND NONREACTIVE (NONREACTIVE); 66KDIGG BAND NONREACTIVE (NONREACTIVE); 93KDIGG BAND NONREACTIVE (NONREACTIVE)
== END | disposition home or self-care (01) ==
LOC: C.LABBC 12:17
PROVIDERS: ATTEND Physician Assistant Medical
DX: I25.10 Atherosclerotic heart disease of native coronary artery without angina pectoris (principal); R50.9 Fever, unspecified; T14.8 Other injury of unspecified body region; W57.XXXA Bitten or stung by nonvenomous insect and other nonvenomous arthropods, initial encounter

== ENCOUNTER → 2017-01-08 | Outpatient (CLI) | payer BC ==
[2017-01-08 10:05] LABS: BLOOD UREA NITROGEN 14 mg/dl (7-18); BUN/CREATININE RATIO 15.4 (10-20); CALCIUM 8.9 mg/dl (8.5-10.1); CARBON DIOXIDE 29 mmol/L (21-32); CHLORIDE 103 mmol/L (98-107); CREATININE 0.89 mg/dl (0.60-1.40); GLUCOSE 90 mg/dl (70-99); POTASSIUM 3.7 mmol/L (3.5-5.1); SODIUM 137 mmol/L (136-145)
== END | disposition home or self-care (01) ==
LOC: C.LAB1850 08:34
PROVIDERS: ATTEND Physician Assistant
DX: I10 Essential (primary) hypertension (principal)

== ENCOUNTER → 2017-02-28 | Outpatient (CLI) | payer BC ==
[2017-02-28 13:00] LABS: BASO % 0.5 %; BASO ABS # 0.03 K/uL (0-0.2); COMPLETE YES; EOS % 1.3 %; HEMATOCRIT 42.3 % (42-52); IG% 0.2 %; LYMPH % 22.4 %; LYMPH ABS # 1.24 K/uL (1.2-3.4); MEAN CELL VOLUME 85.8 fL (80-100); MEAN CORPUSCULAR HEMOGLOBIN 28.8 pg (25-34); MEAN CORPUSCULAR HGB CONC 33.6 g/dl (32-36); MEAN PLATELET VOLUME 10.9 fL (7.4-10.4); MONO % 15.2 %; NEUT % 60.4 %; PLATELET COUNT 236 K/uL (130-400); RED BLOOD COUNT 4.93 M/uL (4.7-6.1); WHITE BLOOD COUNT 5.54 K/uL (4.8-10.8)
[2017-02-28 13:54] LABS: ALB/GLOB RATIO 0.9 (0.9-2); ALKALINE PHOSPHATASE 97 U/L (45-117); ALT/SGPT 32 U/L (12-78); AST/SGOT 29 U/L (15-37); BLOOD UREA NITROGEN 13 mg/dl (7-18); BUN/CREATININE RATIO 13.3 (10-20); CALCIUM 8.7 mg/dl (8.5-10.1); CARBON DIOXIDE 33 mmol/L (21-32); CHLORIDE 102 mmol/L (98-107); CREATININE 0.98 mg/dl (0.60-1.40); GLUCOSE 93 mg/dl (70-99); SODIUM 137 mmol/L (136-145); TRIGLYCERIDES 64 mg/dl (0-150); VERY LOW DENSITY LIPOPROT CALC 13 mg/dl
[2017-02-28 14:01] LABS: CHOLESTEROL 120 mg/dl (0-200); CHOLESTEROL/HDL RATIO 2.9; HDL CHOLESTEROL 42 mg/dl; LDL CHOLESTEROL CALCULATED 65 mg/dl
--- NOTE | 2017-03-09 10:56 | CODING QUERY MEDICAL NECESSITY ---
CQSUPPORTING DIAGNOSIS NEEDED A supporting diagnosis is required for the test/procedure performed on this patient in order for us to be reimbursed by the patient's insurance. Please provide a supporting diagnosis for the following test/procedure listed below next to the test name along with your signature. *If there is no additional diagnosis for this patient that would support the following test/procedure please document that below next to the test/procedure. Test(s)/Procedure(s) that require a supporting diagnosis: DOS 02/28/17 VITAMIN B12 TEST Provider Signature: Date: Thank you Haydee Davidson Health Information Management Once completed, please kindly fax back to [phone] For questions please call [phone]
== END | disposition home or self-care (01) ==
LOC: C.LABBC 09:50
PROVIDERS: ATTEND Internal Medicine Geriatric Medicine
DX: Z00.00 Encounter for general adult medical examination without abnormal findings (principal); I10 Essential (primary) hypertension; E78.5 Hyperlipidemia, unspecified; G62.9 Polyneuropathy, unspecified; J44.9 Chronic obstructive pulmonary disease, unspecified; I48.0 Paroxysmal atrial fibrillation; I25.10 Atherosclerotic heart disease of native coronary artery without angina pectoris; R94.6 Abnormal results of thyroid function studies

== ENCOUNTER → 2017-06-01 | Outpatient (CLI) | payer BC ==
[2017-06-01 14:34] LABS: BLOOD UREA NITROGEN 18 mg/dl (7-18); BUN/CREATININE RATIO 21.4 (10-20); CALCIUM 9.3 mg/dl (8.5-10.1); CARBON DIOXIDE 30 mmol/L (21-32); CHLORIDE 98 mmol/L (98-107); CREATININE 0.82 mg/dl (0.60-1.40); GLUCOSE 88 mg/dl (70-99); POTASSIUM 3.4 mmol/L (3.5-5.1); SODIUM 136 mmol/L (136-145)
== END | disposition home or self-care (01) ==
LOC: C.LABBC 12:02
PROVIDERS: ATTEND Physician Assistant Medical
DX: I25.10 Atherosclerotic heart disease of native coronary artery without angina pectoris (principal)

== ENCOUNTER → 2017-06-08 | Outpatient (CLI) | payer BC ==
[2017-06-08 17:07] LABS: BASO % 0.7 %; BASO ABS # 0.03 K/uL (0-0.2); COMPLETE YES; EOS % 0.7 %; HEMATOCRIT 43.2 % (42-52); IG% 0.2 %; LYMPH % 22.4 %; LYMPH ABS # 1.01 K/uL (1.2-3.4); MEAN CELL VOLUME 84.2 fL (80-100); MEAN CORPUSCULAR HEMOGLOBIN 28.7 pg (25-34); MEAN PLATELET VOLUME 11.5 fL (7.4-10.4); PLATELET COUNT 221 K/uL (130-400); RED BLOOD COUNT 5.13 M/uL (4.7-6.1)
[2017-06-08 17:23] LABS: BLOOD UREA NITROGEN 15 mg/dl (7-18); BUN/CREATININE RATIO 17.1 (10-20); CALCIUM 9.1 mg/dl (8.5-10.1); CARBON DIOXIDE 29 mmol/L (21-32); CHLORIDE 100 mmol/L (98-107); CREATININE 0.85 mg/dl (0.60-1.40); GLUCOSE 142 mg/dl (70-99); POTASSIUM 3.4 mmol/L (3.5-5.1); SODIUM 137 mmol/L (136-145)
== END | disposition home or self-care (01) ==
LOC: C.LABBC 14:59
PROVIDERS: ATTEND Physician Assistant Medical
DX: I10 Essential (primary) hypertension (principal); E87.6 Hypokalemia; R04.0 Epistaxis

== ENCOUNTER → 2017-07-31 | Outpatient (CLI) | payer BC ==
--- NOTE | 2017-07-31 16:01 | DIAGNOSTIC IMAGING REPORT ---
CHEST 2 VIEWS ROUTINE CLINICAL HISTORY: INFLUENZA COMPARISON STUDY: Chest radiograph December 29, 2016. FINDINGS: Note is made of median sternotomy wires and anterior cervical spine fusion. Lung volumes are normal. No pneumothorax or pleural effusion is noted. There is no consolidation or evidence of pulmonary edema. Moderate cardiomegaly is unchanged. The appearance of the chest is unchanged. IMPRESSION: No acute cardiopulmonary findings. No change in appearance of the chest. Electronically signed by: Marino Morgan M.D. 07/31/2017 3:59 PM Dictated Date/Time: 07/31/2017 3:58 PM
== END | disposition home or self-care (01) ==
LOC: C.RADBC 14:41
PROVIDERS: ATTEND Physician Assistant Medical
DX: J11.1 Influenza due to unidentified influenza virus with other respiratory manifestations (principal)

== ENCOUNTER → 2017-09-17 | Outpatient (CLI) | payer BC ==
[2017-09-17 13:41] LABS: BASO % 0.8 %; BASO ABS # 0.04 K/uL (0-0.2); EOS ABS # 0.05 K/uL (0-0.5); HEMATOCRIT 42.9 % (42-52); HEMOGLOBIN 14.9 g/dL (14.0-18.0); IG# 0.01 K/uL (0.00-0.02); LYMPH % 26.7 %; LYMPH ABS # 1.28 K/uL (1.2-3.4); MEAN CELL VOLUME 84.3 fL (80-100); MEAN CORPUSCULAR HEMOGLOBIN 29.3 pg (25-34); MEAN CORPUSCULAR HGB CONC 34.7 g/dl (32-36); MEAN PLATELET VOLUME 11.5 fL (7.4-10.4); MONO % 12.5 %; NEUT % 58.8 %; NEUT ABS # 2.82 K/uL (1.4-6.5); PLATELET COUNT 216 K/uL (130-400); RED CELL DISTRIBUTION WIDTH CV 15.9 % (11.5-14.5); RED CELL DISTRIBUTION WIDTH SD 49.2 fL (36.4-46.3)
[2017-09-17 14:43] LABS: ALBUMIN 3.8 gm/dl (3.4-5.0); ALT/SGPT 37 U/L (12-78); AST/SGOT 30 U/L (15-37); BLOOD UREA NITROGEN 13 mg/dl (7-18); CALCIUM 8.9 mg/dl (8.5-10.1); CARBON DIOXIDE 28 mmol/L (21-32); CREATININE 0.95 mg/dl (0.60-1.40); GLUCOSE 132 mg/dl (70-99); POTASSIUM 3.4 mmol/L (3.5-5.1); SODIUM 137 mmol/L (136-145); TOTAL PROTEIN 7.8 gm/dl (6.4-8.2)
[2017-09-17 14:53] LABS: ALKALINE PHOSPHATASE 102 U/L (45-117)
== END | disposition home or self-care (01) ==
LOC: C.LABBC 09:58
PROVIDERS: ATTEND Internal Medicine Geriatric Medicine
DX: I10 Essential (primary) hypertension (principal); M48.00 Spinal stenosis, site unspecified; R94.6 Abnormal results of thyroid function studies

== ENCOUNTER → 2017-11-02 | Outpatient (CLI) | payer BC ==
[2017-11-02 15:10] LABS: INFLUENZA A PCR Neg for Influ A (NEG); INFLUENZA B PCR Neg for Influ B (NEG)
== END | disposition home or self-care (01) ==
LOC: C.LAB1850 11:37
PROVIDERS: ATTEND Internal Medicine Geriatric Medicine
DX: J11.1 Influenza due to unidentified influenza virus with other respiratory manifestations (principal)

== ENCOUNTER → 2018-02-05 | Outpatient (CLI) | payer BC ==
[2018-02-05 10:47] LABS: BLOOD UREA NITROGEN 15 mg/dl (7-18); CALCIUM 8.7 mg/dl (8.5-10.1); CARBON DIOXIDE 27 mmol/L (21-32); CREATININE 0.88 mg/dl (0.60-1.40); GLUCOSE 88 mg/dl (70-99); POTASSIUM 3.9 mmol/L (3.5-5.1); SODIUM 140 mmol/L (136-145)
== END | disposition home or self-care (01) ==
LOC: C.LAB1850 09:05
PROVIDERS: ATTEND Physician Assistant Medical
DX: I10 Essential (primary) hypertension (principal)

== ENCOUNTER 2025-03-08 14:20 | Observation (INO) ==
[2025-03-08] MEDS: LIDOCAINE 2% JELLY 5 ML TUBE EXT ONE (15:47)
[2025-03-08 15:51] LABS: Hematocrit (blood only) 38.0 % (42.0-52.0); Hemoglobin 12.9 g/dl (14.0-18.0); Immature Granulocytes # (auto) 0.01 K/uL (0.01-0.20); Immature Granulocytes % (auto) 0.2 %; Mean Corpuscular Hemoglobin 30.3 pg (25.0-34.0); Mean Corpuscular Volume 89.2 fL (80.0-100.0); Platelet Count 124 K/uL (130-400); RDW Standard Deviation 44.5 fL (36.4-46.3); Red Blood Count 4.26 M/uL (4.70-6.10); White Blood Count 5.60 K/ul (4.8-10.8)
[2025-03-08 16:24] LABS: INR 1.3 (0.9-1.1); Partial Thromboplastin Time 32 Seconds (21-31); Prothrombin Time 14.2 Seconds (9.0-12.0)
[2025-03-08 16:45] LABS: Alanine Aminotransferase 17.0 U/L (7-52); Albumin Globulin Ratio 1.3 (0.9-2); Alkaline Phosphatase 93.0 U/L (34-104); Anion Gap 6.0 (3-11); Bilirubin,Total 2.5 mg/dl (0.2-1.0); Blood Urea Nitrogen 18.0 mg/dl (6-23); Calcium 9.2 mg/dl (8.6-10.3); Carbon Dioxide 30.0 mmol/L (21-32); Chloride 100.0 mmol/L (98-107); Creatinine Clr Calc Pharmacy 77.9 ml/min; Globulin 3.1 gm/dl (2.5-4.0); Glucose 118.0 mg/dl (70-99(Fasting)); Lipase 14.0 U/L (11-82); Potassium 4.0 mmol/L (3.5-5.1); Sodium 136.0 mmol/L (136-145); Total Protein 7.2 gm/dl (6.0-8.3)
[2025-03-08 16:56] LABS: Appearance Urine Turbid (Clear)
[2025-03-08 17:03] LABS: Epithelial Cell Urine 0-2 /hpf (0-2)
--- NOTE | 2025-03-08 17:05 | Emergency Department Note ---
Impression & Plan Gross hematuria, Complicated urinary tract infection, Bladder mass, Acute anemia ED Provider Note NAME: FRED JETT AGE: 89 SEX: M : 1935 ARRIVES VIA: Walk-In INFORMANT: Patient, his ED PROVIDER(S): Pacheco Garces DO CHIEF COMPLAINT: gross hematuria HPI: This is a 89-year-old male with the PMHx of BPH, CKD, CAD s/p CABG, permanent atrial fibrillation, chronic anticoagulation with Eliquis, hypertension, hyperlipidemia and CHF presenting to [facility] for further evaluation of gross hematuria. Patient is accompanied by his who provide additional history. Patient reports that he has been dealing with gross hematuria over the course the last week. Significantly worsened within the past 24 hours. Now passing blood clots. He does not feel like he is completely emptying his bladder. Notes that he sustained a fall with head strike in the past week. He did have CT imaging performed at an outside hospital that was normal. Patient was scheduled to follow-up with urology at the [facility] but had issues with completing this. Patient states he continues to have worsening lower quadrant abdominal pain as well as urinary retention. Patient having some urethral meatus pain secondary to large clots passed. He states that the blood is worse than usual. Patient does report compliance with his anticoagulation but did not take his Eliquis this morning. They deny fever or chills. No cough or congestion. Denies chest pain or palpitations. No shortness of breath. They deny nausea and vomiting. No recent changes in bowel movements. Patient denies recent changes in medications or OTC supplements. Patient offers no other complaints, today. ADDITIONAL HISTORY OBTAINED: Per HPI Chronic Medical/Social Conditions Affecting Care: Per HPI PAST MEDICAL HISTORY: See Below PAST SURGICAL HISTORY: See Below FAMILY HISTORY: See Below SOCIAL HISTORY: See Below HOME MEDICATIONS: See Below ALLERGIES: See Below VITALS: See Below PHYSICAL EXAMINATION: GENERAL: Sitting up in bed, alert, well appearing, well nourished, no distress, non-toxic EYE EXAM: normal conjunctiva. PERRL and EOM's grossly intact. OROPHARYNX: no exudate, no erythema, lips, buccal mucosa, and tongue normal and mucous membranes are moist NECK: supple, no nuchal rigidity, no adenopathy, non-tender LUNGS: Clear to auscultation. Normal chest wall mechanics HEART: no murmurs, regular rate, regular rhythm ABDOMEN: abdomen soft, there is suprapubic fullness as well as tenderness to palpation, no masses, no rebound or guarding. BACK: Back is symmetrical on inspection and there is no deformity, no midline tenderness, no CVA tenderness. SKIN: no rashes and no bruising UPPER EXTREMITIES: upper extremities are grossly normal. LOWER EXTREMITIES: No pitting edema. NEURO EXAM: Normal sensorium, GCS 15, normal speech, no gross weakness of arms, no gross weakness of legs. MEDICAL DECISION MAKING: Differential diagnoses includes but not limited to gross hematuria, bladder malignancy, nephrolithiasis, ureterolithiasis, coagulopathy, malignancy, complicated UTI In summary, this is a 89 year old male who presented with gross hematuria. Differential as above. Nursing notes and pertinent past medical records reviewed. Vital signs reviewed and the patient is mildly hypertensive but otherwise afebrile and HDS. History and presentation revealed Gross hematuria that has been ongoing outpatient workup. He was suppose to follow-up with urology but the [facility] arranged the appointment wrong and he had be rescheduled. [facility] he is very dissatisfied with his experience. Patient states the gross hematuria worsened today as well as lower quadrant abdominal pain he was told to come to the emergency department. Did have a recent fall but had negative workup per the patient with CT head. Physical examination revealed as above. As a result of my initial evaluation, we will plan to repeat the patient's workup today including imaging, urinalysis and CT abdomen/pelvis. Diagnostics interpreted by me include cardiac monitoring as listed below: -Cardiac Monitoring: An order was placed for continuous cardiac monitoring. The monitor shows a rate of 60-80s with regular rhythm. Patient completed laboratory studies and imaging. Results independently interpreted by me are hemoglobin drop from baseline as well as a UTI. The patient was managed with Callahan catheter placement and CBI. The patient has gross hematuria in the setting of anticoagulation. Callahan catheter was placed. Draining a pale red with some clots. This is improved from prior. Does have a hemoglobin drop. Patient is hypertensive but otherwise afebrile. Urinalysis showed pyuria and bacteriuria. Treated for complicated UTI with IV ceftriaxone. Patient was discussed with urology (Dr. Leija) via TT and they will plan to manage CBI. Am concerned for possible bladder malignancy based on CT scan. Formal read was pending at the time of admission. Ultimately, the decision was made to admit the patient for gross hematuria with chronic anticoagulation hemoglobin dropped as well as complicated UTI. I discussed the case with the hospitalist service via telephone/[employer] and they are agreeable to admit the patient to their services. Based on the above, including the patient's age, coexisting illnesses, labs, imaging, and exam findings the decision to treat as an inpatient. I discussed the patient with the hospitalist team who recommended admission to their services. They received the medications, treatments, interventions indicated above and their condition remained stable. I discussed my findings with the patient and their family and they understand and agree with the treatment plan. All patient / family questions were answered to their satisfaction. Consults/Care Managements Discussions: Per MDM ER treatment provided: See above Procedures:none Critical Care: None The chart was completed utilizing [employer] Speech voice recognition software. Grammatical errors, random word insertions, pronoun errors, and incomplete sentences are an occasional consequence of this system due to software limitations, ambient noise, and hardware issues. Any formal questions or concerns about the content, text, or information contained within the body of this dictation should be directly addressed to the physician for clarification. Past Med/Surg History Problem List (Updated 03/09/25 @ 08:27 by Pacheco Garces DO) Acute anemia (Acute) Bladder mass (Acute) Complicated urinary tract infection (Acute) Gross hematuria (Acute) CKD (chronic kidney disease) Hematuria Chronic anticoagulation S/P CABG x 4 Anemia Melena Right-sided congestive heart failure HTN (hypertension) (Chronic) Hyperlipidemia (Chronic) Lumbar stenosis with neurogenic claudication (Acute) Chest pain Atrial fibrillation, permanent CAD, multiple vessel (Acute) Followed by Cardiology>[facility] Gastroesophageal reflux disease (Acute) Peripheral neuropathy (Acute) Osteoarthritis (Acute) Obesity, Class I, BMI 30-34.9 (Acute) Benign localized prostatic hyperplasia with lower urinary tract symptoms (LUTS) (Acute) Followed by Urology Medical History AF (paroxysmal atrial fibrillation) History of skin cancer History of COVID-19 FALL 2021>RESOLVED Hx of gout History of Mohs micrographic surgery for skin cancer on his back/RT EYELID Adenoma of right adrenal gland Tremor Hypertension History of Clostridium difficile colitis Dyslipidemia Carotid artery plaque COPD, mild Adrenal adenoma CVA (cerebral infarction) 2001>BALANCE ISSUES CONT. Surgical History History of tonsillectomy and adenoidectomy History of tooth extraction History of cardiac cath 2017/NO STENTS History of coronary artery bypass graft X 4 IN 2017>LORRAINE H/O esophagogastroduodenoscopy H/O colonoscopy S/P cataract surgery rt/left H/O neck surgery cervical discectomy and foraminotomy. Dr Rojo H/O: knee surgery RT History of lumbar fusion Family History Brother Tongue cancer Prostate cancer Stroke shortly after large stroke Sister Breast cancer Father Cerebral aneurysm Mother Colorectal cancer Unknown Heart disease Nephrolithiasis Hypertension Other No family history of adverse response to anesthesia Denies family history of Ovarian cancer Myocardial infarction Lung cancer Social History Smoking Status: Former smoker Tobacco Type: Cigarettes Age Started Using Tobacco: 24; Age Quit Using Tobacco: 25; Second Hand Exposure: No; Do You Dip or Chew Tobacco: No; Hx Alcohol Use: Yes Alcohol type: beer and hard liquor Alcohol type Comment: whiskey at night Alcohol Intake Frequency: 4 or More x per/Week Alcohol Intake Frequency Comment: nightly Hx Substance Use: No Preferred Language: Yoruba Communication Ability: Effective Communication Ability Comment: PT IS [place] PER Visual Impairment: Limited Hearing Ability: 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 Aid [employer] Professor Required: No Beliefs That Will Affect Care: None marital status: Current Living Situation: Spouse current occupational status: retired How many Children do You have: 2 Feels Safe at Home: Yes Safety Concerns: Feels Safe At This Time Childhood Exposure to Second-Hand Smoke: No caffeine: Yes (coffee) Dental Care, Regularly: Yes Physical Activity Frequency: Other Physical Activity Frequency Comment: cuts wood but not regular Seatbelt Use: always Sunscreen Use: No Assistive Devices: Cane and Glasses Allergies Allergies Allergy/AdvReac Type Severity Reaction Status Date / Time aspirin [From Aggrenox] AdvReac Intermediate DIZZY Verified 03/08/25 18:42 dipyridamole AdvReac Intermediate Passed out Verified 03/08/25 18:42 Home Meds Home Medications Medication Instructions Recorded Confirmed magnesium oxide 420 mg tablet 420 mg PO DAILY 12/03/21 03/08/25 pantoprazole 20 mg tablet,delayed 20 mg PO Q2D 12/03/21 03/08/25 release cholecalciferol (vitamin D3) 25 25 mcg PO DAILY 06/30/22 03/08/25 mcg (1,000 unit) tablet (Vitamin D3) potassium chloride 20 mEq 30 meq PO DAILY 06/30/22 03/08/25 tablet,extended release albuterol sulfate 90 mcg/actuation 1 puff inhalation Q6H PRN 03/08/25 03/08/25 aerosol inhaler Shortness Of Breath Or Wheezing diclofenac sodium 1 % topical gel 2 g topical QID PRN Pain 03/08/25 03/08/25 lisinopril 2.5 mg tablet 2.5 mg PO DAILY 03/08/25 03/08/25 omega-3 fatty acids 1,000 mg 1,000 mg PO BID 03/08/25 03/08/25 capsule Previous Rx's Medication Instructions Recorded blood pressure monitor (Blood #1 ea 04/28/19 Pressure Kit) metoprolol tartrate 25 mg tablet 25 mg PO BID #180 tabs 09/30/19 atorvastatin 40 mg tablet 40 mg PO DAILY #90 tabs 12/27/19 dutasteride 0.5 mg-tamsulosin ER 1 cap PO DAILY #90 caps 04/16/20 0.4 mg capsule ext.release 24hr mphas (Marsha) apixaban 5 mg tablet 5 mg PO BID #180 tabs 05/31/20 fluticasone propionate 50 1 spray intranasal DAILY PRN 06/01/20 mcg/actuation nasal allergy symptoms #15.8 mL spray,suspension (Flonase Allergy Relief) nystatin 100,000 unit/gram topical 1 applic topical BID PRN rash #60 06/01/20 powder grams tiotropium bromide 1.25 2 puff inhalation DAILY #4 grams 02/14/21 mcg/actuation mist for inhalation (Spiriva Respimat) bumetanide 1 mg tablet 1 mg PO DAILY #90 tabs 09/08/24 isosorbide mononitrate 60 mg 60 mg PO QAM #90 tabs 09/08/24 tablet,extended release 24 hr Results & Data (ED) Vital Signs Vital Signs - 24 hr 03/08/25 14:50 03/08/25 15:55 03/08/25 16:01 Temperature 36.7 C Temperature Source Temporal Artery Scan Pulse Rate 85 67 Pulse Rate [Apical] Respiratory Rate 18 Respiratory Effort / Characteristics Respiratory Depth Respiratory Pattern Blood Pressure 177/94 H Blood Pressure [Left Arm] Blood Pressure Mean 121 Blood Pressure Mean [Left Arm] Pulse Oximetry 98 Oxygen Delivery Method Room Air Room Air Sepsis New/Unexplained Change in Mental Status No Sepsis Action Taken by Nursing No Action Required 03/08/25 18:00 Temperature Temperature Source Pulse Rate Pulse Rate [Apical] 71 Respiratory Rate 18 Respiratory Effort / Characteristics Non-Labored Spontaneous Respiratory Depth Normal Respiratory Pattern Regular Blood Pressure Blood Pressure [Left Arm] 158/75 H Blood Pressure Mean Blood Pressure Mean [Left Arm] 102 Pulse Oximetry 94 Oxygen Delivery Method Room Air Sepsis New/Unexplained Change in Mental Status Sepsis Action Taken by Nursing Laboratory Data 03/08/25 15:25 03/08/25 15:25 Lab Results 03/08/25 03/08/25 Range/Units 15:25 16:25 WBC 5.60 (4.8-10.8) K/ul RBC 4.26 L (4.70-6.10) M/uL Hgb 12.9 L (14.0-18.0) g/dl Hct 38.0 L (42.0-52.0) % MCV 89.2 (80.0-100.0) fL MCH 30.3 (25.0-34.0) pg MCHC 33.9 (32.0-36.0) g/dL RDW Std Deviation 44.5 (36.4-46.3) fL RDW Coeff of Shakira 13.9 (11.5-14.5) % Plt Count 124 L (130-400) K/uL MPV 11.6 (9.4-12.4) fL Immature Gran % (Auto) 0.2 % Neut % (Auto) 68.7 % Lymph % (Auto) 17.0 % Sanders % (Auto) 12.3 % Eos % (Auto) 0.9 % Baso % (Auto) 0.9 % Neut # (Auto) 3.85 (1.40-6.50) K/uL Lymph # (Auto) 0.95 L (1.20-3.40) K/uL Sanders # (Auto) 0.69 H (0.11-0.59) K/uL Eos # (Auto) 0.05 (0.00-0.50) K/uL Baso # (Auto) 0.05 (0.00-0.20) K/uL Immature Gran # (Auto) 0.01 (0.01-0.20) K/uL PT 14.2 H (9.0-12.0) Seconds INR 1.3 H (0.9-1.1) APTT 32 H (21-31) Seconds PTT Ratio 1.2 Sodium 136 (136-145) mmol/L Potassium 4.0 (3.5-5.1) mmol/L Chloride 100 (98-107) mmol/L Carbon Dioxide 30 (21-32) mmol/L Anion Gap 6 (3-11) BUN 18 (6-23) mg/dl Creatinine 0.82 (0.6-1.4) mg/dl Est Cr Clr Drug Dosing 77.9 ml/min eGFR 85.02 BUN/Creatinine Ratio 22.0 H (10-20) Glucose 118 H (70-99(Fasting)) mg/dl Lactate 1.0 (0.4-2.0) mmol/L Calcium 9.2 (8.6-10.3) mg/dl Total Bilirubin 2.5 H (0.2-1.0) mg/dl AST 21 (13-39) U/L ALT 17 (7-52) U/L Alkaline Phosphatase 93 (34-104) U/L Total Protein 7.2 (6.0-8.3) gm/dl Albumin 4.1 (3.4-5.0) gm/dl Globulin 3.1 (2.5-4.0) gm/dl Albumin/Globulin Ratio 1.3 (0.9-2) Lipase 14 (11-82) U/L Urine Color See Comment Urine Appearance Turbid A (Clear) Urine pH Not Reportable Ur Specific Bethany 1.020 (1.000-1.030) Urine Protein Not Reportable Urine Glucose (UA) Not Reportable Urine Ketones Not Reportable Urine Blood Not Reportable Urine Nitrite Not Reportable Urine Bilirubin Not Reportable Urine Urobilinogen Not Reportable Ur Leukocyte Esterase Not Reportable Urine RBC >20 H (0-2) /hpf Urine WBC >50 H (0-5) /hpf Ur Epithelial Cells 0-2 (0-2) /hpf Urine Bacteria 1+ H (None Seen) Urine Comment Administered Medications Discontinued Medications Fentanyl Citrate (Fentanyl Citrate Pf 100 Mcg/2 Ml Vial) 50 mcg IV NOW ONE Stop: 03/08/25 15:33 Last Admin: 03/08/25 15:45 Dose: 50 mcg Documented By: MIGUEL Ceftriaxone Sodium (Rocephin) 1,000 mg in 50 mls @ 100 mls/hr IV NOW STA Stop: 03/08/25 17:34 Last Infusion: 03/08/25 19:00 Dose: Infused Documented By: Admin: 03/08/25 18:20 Dose: 100 mls/hr Documented By: JOSE G Ioversol (Optiray 320 100ml) 90 ml IV ONCE ONE Stop: 03/08/25 17:25 Last Admin: 03/08/25 17:24 Dose: 90 ml Documented By: GIULIA Lidocaine HCl (Lidocaine 2% Jelly 5 Ml Tube) 5 ml EXT NOW ONE Stop: 03/08/25 15:33 Last Admin: 03/08/25 15:47 Dose: 5 ml Documented By: MIGUEL Discharge Plan Visit Data Chief Complaint: Urinary Symptoms Stated Complaint: BLOOD IN URINE ED Provider: Pacheco Garces Discharge Problem: Gross hematuria, Complicated urinary tract infection, Bladder mass, Acute anemia Patient Disposition: Admitted As Inpatient Condition: Good Discharge Instructions Interventions: ED Discharge Assessment Last Done: 03/08/25 23:09
[2025-03-08] MEDS: OPTIRAY 320 100ml IV ONE (17:24)
[2025-03-08] MEDS: cefTRIAXone SODIUM 1,000 MG/50 ML BAG IV STA (18:20)
--- NOTE | 2025-03-08 18:24 | History & Physical Report ---
"Date of Service March 08, 2025 Assessment & Plan (1) Hematuria: (2) S/P CABG x 4: (3) COPD, mild: (4) CKD (chronic kidney disease): Plan Marco Antonio is a 89-year-old male with a past medical history of paroxysmal A-fib, gout, hypertension, CKD, CAD and a history of CABG who presents to the ER with concerns for ongoing hematuria. #Hematuria |BPH - ongoing hematuria with clots since 03/06, started on CBI in the ER Consult urology, NPO at midnight in case of need for intervention Hold Eliquis - last dose 03/06 UA mildly concerning for infection, continue ceftriaxone. Follow cultures Awaiting formal CT A/P read, will defer to urology if bladder ultrasound is needed continue Flomax Trend CBC #CAD, history of CABG | Afib Continue statin, Imdur, lisinopril and metoprolol #COPD Continue home inhalers #CKD - monitor kidney function with CBI and hematuria dispo: Ops to med/surge DVT prophylaxis: Hold Eliquis with hematuria updated at bedside on admission History of Present Illness Chief Complaint: hematuria Primary Care Provider: Odell Kwan MD Marco Antonio is a 89-year-old male with a past medical history of paroxysmal A-fib, gout, hypertension, CKD, CAD and a history of CABG who presents to the ER with concerns for ongoing hematuria. He presented to [place] [facility] on Tuesday 03/06 for the same concerns states that he was given a scan that was concerning for mass and set up for a follow-up appointment on 03/07. When he arrived to the follow-up appointment yesterday they said they did not have room for him on his schedule. He presents to our ER today with difficulty urinating secondary to this francesca turia. States that his urine has been very dark almost black in color and he has seen clots. Denies any lightheadedness or dizziness. Has been holding his Eliquis since Thursday per the recommendation of the [facility]. Did not take his medications today Would like to be a full code. Allergies Allergy/AdvReac Type Severity Reaction Status Date / Time aspirin [From Aggrenox] AdvReac Intermediate DIZZY Verified 03/08/25 18:42 dipyridamole AdvReac Intermediate Passed out Verified 03/08/25 18:42 Home Medications Medication Instructions Recorded Confirmed Type blood pressure monitor (Blood #1 ea 04/28/19 09/08/24 Rx Pressure Kit) metoprolol tartrate 25 mg tablet 25 mg PO BID #180 tabs 09/30/19 03/08/25 Rx atorvastatin 40 mg tablet 40 mg PO DAILY #90 tabs 12/27/19 03/08/25 Rx dutasteride 0.5 mg-tamsulosin ER 1 cap PO DAILY #90 caps 04/16/20 03/08/25 Rx 0.4 mg capsule ext.release 24hr mphas (Marsha) apixaban 5 mg tablet 5 mg PO BID #180 tabs 05/31/20 03/08/25 Rx fluticasone propionate 50 1 spray intranasal DAILY PRN 06/01/20 03/08/25 Rx mcg/actuation nasal allergy symptoms #15.8 mL spray,suspension (Flonase Allergy Relief) nystatin 100,000 unit/gram topical 1 applic topical BID PRN rash #60 06/01/20 03/08/25 Rx powder grams tiotropium bromide 1.25 2 puff inhalation DAILY #4 grams 02/14/21 03/08/25 Rx mcg/actuation mist for inhalation (Spiriva Respimat) magnesium oxide 420 mg tablet 420 mg PO DAILY 12/03/21 03/08/25 History pantoprazole 20 mg tablet,delayed 20 mg PO Q2D 12/03/21 03/08/25 History release cholecalciferol (vitamin D3) 25 25 mcg PO DAILY 06/30/22 03/08/25 History mcg (1,000 unit) tablet (Vitamin D3) potassium chloride 20 mEq 30 meq PO DAILY 06/30/22 03/08/25 History tablet,extended release bumetanide 1 mg tablet 1 mg PO DAILY #90 tabs 09/08/24 03/08/25 Rx isosorbide mononitrate 60 mg 60 mg PO QAM #90 tabs 09/08/24 03/08/25 Rx tablet,extended release 24 hr albuterol sulfate 90 mcg/actuation 1 puff inhalation Q6H PRN 03/08/25 03/08/25 History aerosol inhaler Shortness Of Breath Or Wheezing diclofenac sodium 1 % topical gel 2 g topical QID PRN Pain 03/08/25 03/08/25 History lisinopril 2.5 mg tablet 2.5 mg PO DAILY 03/08/25 03/08/25 History omega-3 fatty acids 1,000 mg 1,000 mg PO BID 03/08/25 03/08/25 History capsule Past Med/Surg History Problem List (Updated 03/08/25 @ 18:33 by Iraida Quan PA-C) CKD (chronic kidney disease) Hematuria Chronic anticoagulation S/P CABG x 4 Anemia Melena Right-sided congestive heart failure HTN (hypertension) (Chronic) Hyperlipidemia (Chronic) Lumbar stenosis with neurogenic claudication (Acute) Chest pain Atrial fibrillation, permanent CAD, multiple vessel (Acute) Follow[facility] by Cardiology[facility] Gastroesophageal reflux disease (Acute) Peripheral neuropathy (Acute) Osteoarthritis (Acute) Obesity, Class I, BMI 30-34.9 (Acute) Benign localized prostatic hyperplasia with lower urinary tract symptoms (LUTS) (Acute) Followed by Urology Medical History (Updated 03/08/25 @ 18:33 by Iradia Quan PA-C) AF (paroxysmal atrial fibrillation) History of skin cancer History of COVID- FALL 2021>RESOLVED Hx of gout History of Mohs micrographic surgery for skin cancer on his back/RT EYELID Adenoma of right adrenal gland Tremor Hypertension History of Clostridium difficile colitis Dyslipidemia Carotid artery plaque COPD, mild Adrenal adenoma CVA (cerebral infarction) 2001>BALANCE ISSUES CONT. Surgical History History of tonsillectomy and adenoidectomy History of tooth extraction History of cardiac cath 2017/NO STENTS History of coronary artery bypass graft X 4 IN 2017>LORRAINE H/O esophagogastroduodenoscopy H/O colonoscopy S/P cataract surgery rt/left H/O neck surgery cervical discectomy and foraminotomy. Dr Rojo H/O: knee surgery RT History of lumbar fusion Family History Brother Tongue cancer Prostate cancer Stroke Sister Breast cancer Father Cerebral aneurysm Mother Colorectal cancer Unknown Heart disease Nephrolithiasis Hypertension Other No family history of adverse response to anesthesia Denies family history of Ovarian cancer Myocardial infarction Lung cancer Social History Smoking Status: Former smoker Tobacco Type: Cigarettes Age Started Using Tobacco: 24; Age Quit Using Tobacco: 25; Second Hand Exposure: No; Do You Dip or Chew Tobacco: No; Hx Alcohol Use: Yes Alcohol type: beer and hard liquor Alcohol type Comment: whiskey at night Alcohol Intake Frequency: 4 or More x per/Week Alcohol Intake Frequency Comment: nightly Hx Substance Use: No Preferred Language: Portuguese Communication Ability: Effective Communication Ability Comment: PT IS [place] PER Visual Impairment: Limited Hearing Ability: 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 Aid Appraisal Analyst Required: No Beliefs That Will Affect Care: None marital status: Current Living Situation: Spouse current occupational status: retired How many Children do You have: 2 Feels Safe at Home: Yes Safety Concerns: Feels Safe At This Time Childhood Exposure to Second-Hand Smoke: No caffeine: Yes (coffee) Dental Care, Regularly: Yes Physical Activity Frequency: Other Physical Activity Frequency Comment: cuts wood but not regular Seatbelt Use: always Sunscreen Use: No Assistive Devices: Cane and Glasses Review of Systems Review of Systems: All systems reviewed & are unremarkable except as noted in Subjective Physical Exam Physical Exam: General: NAD, VS as above Resp: normal respiratory effort, lungs clear to auscultation CV: RRR, no murmur, Abd: normal bowel sounds, non tender, no hepatosplenomegaly Extremities: Moves all extremities, no edema : Urinary catheter in place with CBI running, dark pink in color Neuro: A&O x3, Results & Data Results & Data Vital Signs (Past 12 Hours) Vital Signs Temp Pulse Pulse Resp BP BP Pulse Ox 03/08/25 18:00 71 18 158/75 H 94 03/08/25 16:01 03/08/25 15:55 67 03/08/25 14:50 98.1 F 85 18 177/94 H 98 O2 Del Method 03/08/25 18:00 Room Air 03/08/25 16:01 Room Air 03/08/25 15:55 03/08/25 14:50 Room Air Laboratory Results CBC and chemistry reviewed Coagulation studies reviewed UA reviewed Supervising Physician Co-Signing Physician Notes Attending Attestation and Admission Note: Pt seen/examined, chart reviewed, admit care plan d/w SHIRIN Quan. I agree w/ the eric components of her admission documentation. 89yo male with paroxysmal A-fib on Eliquis, gout, hypertension, CAD with prior 4V CABG, BPH. Presents with several days of gross hematuria. Had initial w/u at [facility] this past Thursday - CT a/p with ?bladder mass. Was sent to urology in [place] on Thursday but they could not perform outpatient cystoscopy. Was asked to return on Thursday to that office; instead, patient came to [facility] [place] for evaluation. Other than gross hematuria he has minimal suprapubic discomfort. PMH/PSH/allergies/meds/sochx - reviewed VSS, afebrile gen - resting comfortably in bed, NAD neck - JVD+ heart - irregular, s1 s2, rate <100, 2/6 systolic murmur LSB lungs - CTA b/l abd - soft NT ND BS+ ext - 1-2+ edema b/l legs, pulses 2+ b/l labs reviewed CT a/p reviewed A/P: 1. gross hematuria 2. ?bladder mass 3. BPH 4. CAD/CABG history 5. h/o a.fib on Eliquis 6. HTN 7. right heart disease findings on exam / h/o cor pulmonale based on cardiology notes -3-way zuñiga placed in ER; CBI begun --> continue such -urology consult in am -NPO after MN tonight in case cystoscopy is needed tomorrow -hold Eliquis -?UTI - follow cx, cont rocephin in meantime -cont alpha blockade -other findings on CT a/p - ?cirrhosis, etc - f/u on these issues after #1, #2 are addressed -consider echo - cannot find echo later than 2022 in chart Maulik Mendiola MD PG Care Time/CCT Total # of Minutes Spent Total Time Spent with Patient: Total time spent is greater than 50% in coordination of care (as documented) at patient's floor/unit and/or counseling patient: Coding Level of Care Code 51577 INT INP/OBS CARE 3/75MIN Diagnoses Hematuria R31.9 S/P CABG x 4 Z95.1 COPD, mild J44.9 CKD (chronic kidney disease) N18.9"
--- NOTE | 2025-03-08 18:31 | CT Scan Report ---
Clinical History: Gross hematuria. Evaluate for bladder cancer Technique: Axial computed tomography images were obtained of the abdomen and pelvis after the administration of intravenous contrast. No prior CT is available for comparison. Findings: There is fatty infiltration of the liver. The liver is also mildly nodular in contour, which may be due to mild cirrhosis. No definite liver mass lesion is seen, though small liver masses cannot be excluded given the heterogeneity of the liver. The portal vein is patent. Gallstones are present. There is no definite sign of acute cholecystitis. No bile duct dilatation is noted. The spleen is of normal size. No focal splenic lesion is evident. The pancreas appears normal with no sign of acute or chronic pancreatitis and no mass lesion noted. The pancreatic duct is of normal caliber. There is a 3 cm right adrenal nodule, indeterminate in nature. The left adrenal gland appears normal No definite renal or proximal ureteral calculi are seen on this contrast-enhanced study. There is no hydronephrosis or perinephric stranding. No renal mass lesion is identified. There was a 4 cm right renal cyst. The aorta is of normal caliber. No abdominal adenopathy is seen. There is prominence of the gastric wall that is likely due to the decompressed state. There is no sign of small bowel obstruction. The colon appears unremarkable. The appendix appears normal also. No free intraperitoneal fluid or air is identified. The bladder is decompressed, containing a Callahan catheter. There appears to be irregular soft tissue attenuation material within the bladder. The iliac arteries are of normal caliber. No pelvic adenopathy is noted. There are small bilateral inguinal hernias containing only fat. The prostate is enlarged measuring 4.7 cm There is mild bilateral lung base atelectasis. There is a minimal right pleural effusion. The heart is enlarged. There is a fusion of L2-S1. No fracture is identified. No focal osseous lesion is seen Impression: 1. Material within the urinary bladder that could be due to either blood products or a mass. Evaluation is limited by the decompressed state, with a Callahan catheter present. CT cystogram and/or bladder ultrasound could be obtained for further evaluation 2. Indeterminate right adrenal nodule. If malignancy is found, a metastasis is possible 3. Fatty infiltration of the liver and suspected mild cirrhosis. There is heterogeneity of the liver that could be due to nonuniform fatty infiltration and areas of fibrosis. Subtle metastases cannot be excluded 4. Cholelithiasis without evidence of acute cholecystitis 5. Right renal cyst 6. Enlarged prostate. Correlation with PSA levels may be useful 7. Small bilateral inguinal hernias containing only fat 8. Minimal right pleural effusion and bilateral lung base atelectasis ACT 112: Positive. There are findings on this exam that require communication between the performing entity and the patient following Patient Test Result Information Act ([place] ACT 112) guidelines. Electronically signed by Mauro Rivas 03-08-2025 6:31 PM
[2025-03-08] MEDS ORDERED: ONDANSETRON INJ 2 MG/ML 2 ML VIAL IV PRN (23:09)
[2025-03-08] MEDS ORDERED: POLYETHYLENE (MIRALAX) 17 GM PACK PO PRN (23:09)
[2025-03-09] MEDS: ISOSORBIDE MONO EXTENDED REL 60 MG TABCR PO SCH (08:48)
[2025-03-09] MEDS: TAMSULOSIN HCL 0.4 MG CAP PO SCH (08:48)
[2025-03-09] MEDS: BUMETANIDE 1 MG TAB PO SCH (08:48)
[2025-03-09] MEDS: METOPROLOL TARTRATE 25 MG TAB PO SCH (08:48)
[2025-03-09] MEDS: ATORVASTATIN 40 MG TAB PO SCH (08:48)
[2025-03-09 09:31] LABS: Anion Gap 6.0 (3-11); Blood Urea Nitrogen 14.0 mg/dl (6-23); Calcium 8.8 mg/dl (8.6-10.3); Carbon Dioxide 28.0 mmol/L (21-32); Chloride 104.0 mmol/L (98-107); Creatinine Clr Calc Pharmacy 81.9 ml/min; Glucose 89.0 mg/dl (70-99(Fasting)); Potassium 4.3 mmol/L (3.5-5.1); Sodium 138.0 mmol/L (136-145)
[2025-03-09] MEDS: SODIUM CHLORIDE 0.9% 1,000 ML IV SCH (09:59)
[2025-03-09] MEDS: UMECLIDINIUM BROMIDE 62.5MCG/BLISTER 7 PUFFS/INHALER INH SCH (10:15)
--- NOTE | 2025-03-09 11:20 | Urology Consultation ---
<Statement entered by Zeus Leija MD - 03/09/25 11:59> Patient assessed plan reviewed and agree as written. Would ideally avoid intervention in acute phase if possible for elderly highly comorbid gentleman. Reassuring CBI has been weaned will continue to monitor. Date of Consultation March 09, 2025 Assessment & Plan (1) Gross hematuria: (2) Chronic anticoagulation: (3) Complicated urinary tract infection: (4) Bladder mass: 89-year-old male presented to the emergency department for ongoing gross hematuria and difficulty voiding. Callahan catheter was placed and CBI initiated. Urology is consulted for gross hematuria. Patient is afebrile and hemodynamically stable Labs reviewedcreatinine 0.78, WBC 5.6, hemoglobin 12.9 Urinalysis on arrival showed pyuria and 1+ bacteria Urine culture is pending Continue broad-spectrum antibiotics and narrow per sensitivity data when available Three-way Callahan catheter was placed and he was started on CBI CBI discontinued this morning Callahan draining appropriately with pink urine at present Maintain Callahan catheter Nursing can hand irrigate catheter if it becomes obstructed Patient will need cystoscopy for further evaluation of hematuria and suspected bladder masscan likely be done outpatient pending clinical course Continue supportive care and medical management per hospital medicine service will follow History of Present Illness Reason for Consultation: hematuria on CBI Attending Physician: Chad Cuevas MD History of Present Illness This is an 89-year-old male with past history of CAD status post CABG, permanent atrial fibrillation on chronic anticoagulation, and BPH who presented to the emergency department on 03/08/2025 for evaluation of gross hematuria. He developed gross hematuria 3 days ago and was seen in the emergency department in [place]. He was discharged to follow-up with urology, but was having trouble scheduling follow-up. His hematuria worsened and he developed difficulty voiding prompting his presentation. On arrival, he was afebrile, hypertensive. Lab work showed WBC 5.6, hemoglobin 12.9, creatinine 0.82. Urinalysis noted turbid urine, urine dip not reportable, microscopic exam showed >20 RBC, >50 WBC, 0-2 epithelials and 1+ bacteria. He was started on continuous bladder irrigation and ceftriaxone in the emergency department. He was admitted to the hospital medicine service. Urology is consulted for hematuria on CBI. Workup included CT abdomen pelvis which shows no hydronephrosis, right renal cyst; Callahan catheter in place, blood clot versus mass within the bladder; enlarged prostate. Labs today reviewedcreatinine 0.78, WBC 5.6, hemoglobin 12.9 Urine culture pending On ceftriaxone Patient seen and examined in the emergency department. He is awake and resting in bed. Callahan patent and draining pink. CBI discontinued earlier this morning. He denies suprapubic or flank discomfort. No fever or chills. Eliquis has been on hold since 3 days ago. Denies personal or family history of malignancy. Former smoker. Allergies Allergy/AdvReac Type Severity Reaction Status Date / Time aspirin [From Aggrenox] AdvReac Intermediate DIZZY Verified 03/08/25 18:42 dipyridamole AdvReac Intermediate Passed out Verified 03/08/25 18:42 Home Medications Medication Instructions Recorded Confirmed Type blood pressure monitor (Blood #1 ea 04/28/19 09/08/24 Rx Pressure Kit) metoprolol tartrate 25 mg tablet 25 mg PO BID #180 tabs 09/30/19 03/08/25 Rx atorvastatin 40 mg tablet 40 mg PO DAILY #90 tabs 12/27/19 03/08/25 Rx dutasteride 0.5 mg-tamsulosin ER 1 cap PO DAILY #90 caps 04/16/20 03/08/25 Rx 0.4 mg capsule ext.release 24hr mphas (Marsha) apixaban 5 mg tablet 5 mg PO BID #180 tabs 05/31/20 03/08/25 Rx fluticasone propionate 50 1 spray intranasal DAILY PRN 06/01/20 03/08/25 Rx mcg/actuation nasal allergy symptoms #15.8 mL spray,suspension (Flonase Allergy Relief) nystatin 100,000 unit/gram topical 1 applic topical BID PRN rash #60 06/01/20 03/08/25 Rx powder grams tiotropium bromide 1.25 2 puff inhalation DAILY #4 grams 02/14/21 03/08/25 Rx mcg/actuation mist for inhalation (Spiriva Respimat) magnesium oxide 420 mg tablet 420 mg PO DAILY 12/03/21 03/08/25 History pantoprazole 20 mg tablet,delayed 20 mg PO Q2D 12/03/21 03/08/25 History release cholecalciferol (vitamin D3) 25 25 mcg PO DAILY 06/30/22 03/08/25 History mcg (1,000 unit) tablet (Vitamin D3) potassium chloride 20 mEq 30 meq PO DAILY 06/30/22 03/08/25 History tablet,extended release bumetanide 1 mg tablet 1 mg PO DAILY #90 tabs 09/08/24 03/08/25 Rx isosorbide mononitrate 60 mg 60 mg PO QAM #90 tabs 09/08/24 03/08/25 Rx tablet,extended release 24 hr albuterol sulfate 90 mcg/actuation 1 puff inhalation Q6H PRN 03/08/25 03/08/25 History aerosol inhaler Shortness Of Breath Or Wheezing diclofenac sodium 1 % topical gel 2 g topical QID PRN Pain 03/08/25 03/08/25 Hi story lisinopril 2.5 mg tablet 2.5 mg PO DAILY 03/08/25 03/08/25 History omega-3 fatty acids 1,000 mg 1,000 mg PO BID 03/08/25 03/08/25 History capsule Patient History Medical History AF (paroxysmal atrial fibrillation) History of skin cancer History of COVID-19 FALL 2021>RESOLVED Hx of gout History of Mohs micrographic surgery for skin cancer on his back/RT EYELID Adenoma of right adrenal gland Tremor Hypertension History of Clostridium difficile colitis Dyslipidemia Carotid artery plaque COPD, mild Adrenal adenoma CVA (cerebral infarction) 2001>BALANCE ISSUES CONT. Surgical History History of tonsillectomy and adenoidectomy History of tooth extraction History of cardiac cath 2016/NO STENTS History of coronary artery bypass graft X 4 IN 2017>LORRAINE H/O esophagogastroduodenoscopy H/O colonoscopy S/P cataract surgery rt/left H/O neck surgery cervical discectomy and foraminotomy. Dr Rojo H/O: knee surgery RT History of lumbar fusion Family History Brother Tongue cancer Prostate cancer Stroke shortly after large stroke Sister Breast cancer Father Cerebral aneurysm Mother Colorectal cancer Unknown Heart disease Nephrolithiasis Hypertension Other No family history of adverse response to anesthesia Denies family history of Ovarian cancer Myocardial infarction Lung cancer Social History Smoking Status: Former smoker Tobacco Type: Cigarettes Age Started Using Tobacco: 24; Age Quit Using Tobacco: 25; Second Hand Exposure: No; Do You Dip or Chew Tobacco: No; Hx Alcohol Use: Yes Alcohol type: beer and hard liquor Alcohol type Comment: whiskey at night Alcohol Intake Frequency: 4 or More x per/Week Alcohol Intake Frequency Comment: nightly Hx Substance Use: No Preferred Language: Czech Communication Ability: Effective Communication Ability Comment: PT IS [place] PER Visual Impairment: Limited Hearing Ability: 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 Aid 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 Beliefs That Will Affect Care: None marital status: Current Living Situation: Spouse current occupational status: retired How many Children do You have: 2 Feels Safe at Home: Yes Safety Concerns: Feels Safe At This Time Childhood Exposure to Second-Hand Smoke: No caffeine: Yes (coffee) Dental Care, Regularly: Yes Physical Activity Frequency: Other Physical Activity Frequency Comment: cuts wood but not regular Seatbelt Use: always Sunscreen Use: No Assistive Devices: Cane and Glasses Review of Systems Review of Systems: All systems reviewed & are unremarkable except as noted in HPI & below Physical Exam Constitutional: well developed and well nourished; no acute distress Respiratory: normal respiratory effort; no respiratory distress and no labored breathing Gastrointestinal (Abdomen): Inspection/Auscultation: abdomen normal to inspection Musculoskeletal: Head/Neck/Chest: normocephalic Neurologic: moves all extremities and awake Psychiatric: Orientation: alert and oriented x 3 Genitourinary: Callahan catheter patent and draining pink urine Results & Data Vital Signs (Past 12 Hours) Vital Signs Temp Pulse Pulse Resp BP BP Pulse Ox 03/09/25 08:47 66 20 156/73 H 96 03/09/25 07:54 74 03/09/25 05:01 70 20 130/92 03/09/25 04:06 81 03/09/25 03:31 66 20 119/75 93 03/09/25 02:43 36.6 C 72 22 139/69 95 03/09/25 01:15 74 18 157/94 H 95 03/09/25 00:31 76 20 154/83 H 96 03/09/25 00:01 70 20 146/91 H 96 O2 Del Method 03/09/25 08:47 Room Air 03/09/25 07:54 03/09/25 05:01 03/09/25 04:06 03/09/25 03:31 Room Air 03/09/25 02:43 Room Air 03/09/25 01:15 Room Air 03/09/25 00:31 Room Air 03/09/25 00:01 Room Air PG Care Time/CCT Total # of Minutes Spent Total Time Spent with Patient: Total time spent is greater than 50% in coordination of care (as documented) at patient's floor/unit and/or counseling patient: Coding Level of Care Code 67804 INT INP/OBS CARE 2/55MIN Diagnoses Gross hematuria R31.0 Chronic anticoagulation Z79.01 Complicated urinary tract infection N39.0 Bladder mass N32.89
--- NOTE | 2025-03-09 11:42 | XRay Report ---
XR chest 1V portable CLINICAL HISTORY: possible preop COMPARISON STUDY: 08/30/2023 FINDINGS: Stable CABG. Stable prominent cardiomegaly without pulmonary vascular congestion. No consol idation or pleural effusion. No pneumothorax. IMPRESSION: No acute findings. ACT 112: Negative or not required by law. Electronically signed by: Krystian Paredes M.D. 03/09/2025 11:40 AM
[2025-03-09 13:28] VITALS: RESP 18
[2025-03-09] MEDS ORDERED: cefTRIAXone SODIUM 1,000 MG/50 ML BAG IV SCH (14:00)
[2025-03-09] MEDS: cefTRIAXone SODIUM 2,000 MG/50 ML BAG IV SCH (14:33)
--- NOTE | 2025-03-09 14:38 | Hospitalist Progress Note ---
"Date of Service March 09, 2025 Assessment & Plan (1) Hematuria: (2) S/P CABG x 4: (3) COPD, mild: (4) CKD (chronic kidney disease): Plan Marco Antonio is a 89-year-old male with a past medical history of paroxysmal A-fib, gout, hypertension, CKD, CAD and a history of CABG who presents to the ER with concerns for ongoing hematuria. #Hematuria |BPH - ongoing hematuria with clots since 03/06, started on CBI in the ER. CT A/P with material in bladder that is blood product or mass. Right adrenal nodule, fatty liver with suspected mild cirrhosis, subtle metastasis not excluded. Consult urology - CBI discontinued, hand irrigate catheter if needed, conservati ve measures and plan for outpatient cystocopy Hold Eliquis - last dose 03/06 UA mildly concerning for infection, continue ceftriaxone. Follow cultures continue Flomax Trend CBC and BMP #CAD, history of CABG | Afib Continue statin, Imdur, lisinopril, bumex, and metoprolol #COPD Continue home inhalers #CKD - monitor kidney function with hematuria dispo: continued inpatient stay DVT prophylaxis: Hold Eliquis with hematuria Follow ups on discharge: urology updated at bedside on admission Admission and Anticipated Discharge Date Admission Date: March 08, 2025 Supervising Physician Co-Signing Physician Notes The patient was not seen by me. The chart was reviewed. Case discussed with SHIRIN López. Agree with assessment and plan Subjective patient seen sitting up in bed, did have two instances where he felt like he could not urinate. pain is improved, eager to eat Review of Systems Review of Systems: All systems reviewed & are unremarkable except as noted in Subjective Physical Exam Physical Exam: General: NAD, VS as above Resp: normal respiratory effort, lungs clear to auscultation CV: RRR, no murmur, Abd: normal bowel sounds, non tender, soft Extremities: Moves all extremities, no edema : Urinary catheter in place with CBI running, dark pink in color Neuro: A&O x3, Results & Data Results & Data Vital Signs (Past 12 Hours) Vital Signs Temp Pulse Pulse Pulse Resp BP BP 03/09/25 13:27 97.7 F 68 18 109/70 03/09/25 08:47 66 20 156/73 H 03/09/25 07:54 74 03/09/25 05:01 70 20 130/92 03/09/25 04:06 81 03/09/25 03:31 66 20 119/75 03/09/25 02:43 97.9 F 72 22 139/69 Pulse Ox O2 Del Method 03/09/25 13:27 94 Room Air 03/09/25 08:47 96 Room Air 03/09/25 07:54 03/09/25 05:01 03/09/25 04:06 03/09/25 03:31 93 Room Air 03/09/25 02:43 95 Room Air Laboratory Results BMP reviwwed PG Care Time/CCT Total # of Minutes Spent Total Time Spent with Patient: Total time spent is greater than 50% in coordination of care (as documented) at patient's floor/unit and/or counseling patient: Coding Level of Care Code 46934 SUB INP/OBS CARE 2/35MIN Diagnoses Hematuria R31.9 S/P CABG x 4 Z95.1 COPD, mild J44.9 CKD (chronic kidney disease) N18.9"
[2025-03-10] MEDS: MELATONIN 3 MG TAB PO PRN (00:14)
[2025-03-10] MEDS: ACETAMINOPHEN 325 MG TAB PO PRN (00:14)
[2025-03-10 09:29] LABS: Hematocrit (blood only) 34.9 % (42.0-52.0); Hemoglobin 11.9 g/dl (14.0-18.0); Mean Corpuscular Hemoglobin 30.7 pg (25.0-34.0); Mean Corpuscular Volume 90.2 fL (80.0-100.0); Platelet Count 108 K/uL (130-400); RDW Standard Deviation 45.9 fL (36.4-46.3); Red Blood Count 3.87 M/uL (4.70-6.10); White Blood Count 6.06 K/ul (4.8-10.8)
[2025-03-10 09:47] LABS: Anion Gap 6.0 (3-11); Blood Urea Nitrogen 17.0 mg/dl (6-23); Calcium 8.7 mg/dl (8.6-10.3); Carbon Dioxide 29.0 mmol/L (21-32); Chloride 102.0 mmol/L (98-107); Creatinine Clr Calc Pharmacy 72.6 ml/min; Glucose 105.0 mg/dl (70-99(Fasting)); Potassium 3.8 mmol/L (3.5-5.1); Sodium 137.0 mmol/L (136-145)
--- NOTE | 2025-03-10 10:29 | Urology Progress Note ---
Date of Service March 10, 2025 Assessment & Plan (1) Gross hematuria: Plan: Follow-up of hematuria Patient afebrile, hemodynamically stable Labs reviewedcreatinine 0.88, WBC 6.06, hemoglobin 11.9 Urine culture showed no growth CBI was discontinued yesterday Callahan manually irrigated once overnight Urine looking much clearer today Will reassess later today and if urine remains relatively clear, then recommend outpatient cystoscopy next week Patient reassessed, family at bedside- Callahan patent and continues to drain yellow urine We discussed outpatient follow-up for cystoscopy and he is agreeable He does not want to go home with Callahan catheter We discussed removing Callahan catheter for voiding trial today If patient is unable to void or has elevated PVR >350 mL, then recommend replacement of Callahan catheter Patient can be discharged from perspective when medically stable We will arrange outpatient follow-up with our service for cystoscopy to finalize hematuria workup will sign off, please contact her service with any additional questions or concerns Plan of care reviewed with Dr. Shannon Admission and Anticipated Discharge Date Admission Date: March 08, 2025 Subjective Patient seen and examined at bedside this morning. He is awake sitting up in bed. He reports catheter needed irrigation x 1 overnight. Urine looking much clearer today. Denies pain. No fever or chills. Review of Systems Constitutional: as per Subjective / HPI Genitourinary: + as per Subjective / HPI Physical Exam Constitutional: well developed and well nourished; no acute distress Respiratory: normal respiratory effort; no respiratory distress and no labored breathing Gastrointestinal (Abdomen): Inspection/Auscultation: abdomen normal to inspection Musculoskeletal: Head/Neck/Chest: normocephalic Neurologic: moves all extremities and awake Psychiatric: Orientation: alert and oriented x 3 Genitourinary: Callahan catheter patent and draining yellow urine Results & Data Vital Signs (Past 12 Hours) Vital Signs Temp Pulse Resp BP Pulse Ox O2 Del Method 03/10/25 07:58 36.5 C 60 18 131/71 94 Room Air PG Care Time/CCT Total # of Minutes Spent Total Time Spent with Patient: Total time spent is greater than 50% in coordination of care (as documented) at patient's floor/unit and/or counseling patient: Coding Level of Care Code 09129 SUB INP/OBS CARE 2/35MIN Diagnoses Gross hematuria R31.0
[2025-03-10 15:09] VITALS: BP 109/70; PULSE 70; TEMP 97.9; O2SAT 93
--- NOTE | 2025-03-10 16:26 | Discharge Summary ---
"Discharge Summary Date of Service March 10, 2025 Principal Dx & Hospital Course #1 = Principal Diagnosis (1) Hematuria: (2) S/P CABG x 4: (3) COPD, mild: (4) CKD (chronic kidney disease): Plan Marco Antonio is a 89-year-old male with a past medical history of paroxysmal A-fib, gout, hypertension, CKD, CAD and a history of CABG who presents to the ER with concerns for ongoing hematuria. #Hematuria |BPH - ongoing hematuria with clots since 03/06, started on CBI in the ER. CT A/P with material in bladder that is blood product or mass. Right adrenal nodule, fatty liver with suspected mild cirrhosis, subtle metastasis not excluded. Consult urology - CBI discontinued, urine has improved in color. Callahan removed 03/10 and had spontaneous void. Recommend outpatient cystoscopy. And antibiotics for coverage. Patient received ceftriaxone and will be discharged on cefpodoximine. Continue to hold Eliquis. Continue duasteride-flomax. OP urology follow up. #CAD, history of CABG | Afib Continue statin, Imdur, lisinopril, bumex, and metoprolol Elqiuis Held #COPD - Continue home inhalers #CKD - monitor kidney function with hematuria Dispo: discharge to home today Follow ups on discharge: urology family updated at beside 03/10 case discussed with Kiki urology JULISSA Admission HPI Per Admitting Provider Marco Antonio is a 89-year-old male with a past medical history of paroxysmal A-fib, gout, hypertension, CKD, CAD and a history of CABG who presents to the ER with concerns for ongoing hematuria. He presented to [facility] on Tuesday 03/06 for the same concerns states that he was given a scan that was concerning for mass and set up for a follow-up appointment on 03/07. When he arrived to the follow-up appointment yesterday they said they did not have room for him on his schedule. He presents to our ER today with difficulty urinating secondary to this hematuria. States that his urine has been very dark almost black in color and he has seen clots. Denies any lightheadedness or dizziness. Has been holding his Eliquis since Thursday per the recommendation of the [facility]. Did not take his medications today Would like to be a full code. Discharge Exam General: NAD, VS as above Resp: normal respiratory effort, lungs clear to auscultation CV: RRR, no murmur, Abd: normal bowel sounds, non tender, soft Extremities: Moves all extremities, no edema Neuro: A&O x3, Discharge Plan Discharge Items Patient Disposition: Home - Self-Care Reason For Visit: HEMATURIA Discharge Diagnosis: Hematuria Condition on Discharge: Fair Activity: Resume your previous activity Non-emergency contact: Primary Care Provider and Urologist Call non-emergency contact if: you have any medication questions, your pain is not controlled, your pain is worsening and your temperature is above 101.5 Follow-up/Referrals: Kiki Newman CRNP [Nurse Practitioner] - (Follow up within one week ) Odell Huffman MD [Primary Care Provider] - (Follow up within one week ) Diet: Heart Healthy Addtl Attending Provider Instructions: Mr. Irwin, You were hospitalized after having blood in your urine (hematuria). This was found to be from a mass in your bladder. Given that your blood has cleared up - no procedure was done while you were inpatient. Plan is for outpatient procedure with urology. Urology should contact you with an appointment next week. If you do not hear from them by Thursday afternoon, please call their office [phone] There was concern that you had an urinary infection with the bleeding and were given IV antibiotics. You will be continued on oral antibiotics at discharge. Please continue to hold your Eliquis. No other changes to your home medications. please call urology with any worsening hematuria, painful urination or difficulty urinating. Someone is marketing and public relations manager 19/01. If you are unable to urinate please return to the ED. Make sure you are staying extra hydrated to encourage urination. Please follow up with your PCP within one week. Activity: You can do normal everyday activities as your body allows. Take rest breaks if you feel tired. Do not overexert. Stop activity if you have pain, shortness of breath or feel dizzy. Follow-up appointments: Make an appointment with your primary care physician within one week of discharge. A copy of this summary will be sent to them. Every time you see your primary care physician, or any other doctor, bring your medication list, and a list of questions. CONTACT YOUR PRIMARY CARE PROVIDER if you experience any of the following: Shortness of breath or difficulty breathing Fevers or chills Feeling tired with normal activity or experiencing dizziness or fainting Difficulty following your treatment plan, or difficulty taking medications CALL 911 OR GO TO THE EMERGENCY DEPARTMENT if you experience any of the following: Severe abdominal pain or nausea/vomiting Severe chest pain, or chest pain that radiates (moves) to your jaw or arm Sudden, severe shortness of breath or difficulty breathing - inability to urinate Thank you for allowing us to participate in your care. Pending Studies at Discharge: No Stand-Alone Forms: My [facility], Smoking Cessation Medications and DC Order Prescriptions: New cefpodoxime 200 mg tablet 200 mg PO BID Qty: 14 0RF Rx Instructions: must administer with a meal/food Continued metoprolol tartrate 25 mg tablet 25 mg PO BID Qty: 180 3RF atorvastatin 40 mg tablet 40 mg PO DAILY Qty: 90 3RF dutasteride-tamsulosin [Marsha] 0.5-0.4 mg capsule, ER multiphase 24 hr 1 cap PO DAILY Qty: 90 3RF (DME) blood pressure monitor [Blood Pressure Kit] kit See Dose Instructions .ROUTE .MEDSUPPLY Qty: 1 0RF Dose Instruction: As directed Rx Instructions: As directed pantoprazole 20 mg tablet,delayed release (DR/EC) 20 mg PO Q2D magnesium oxide 420 mg tablet 420 mg PO DAILY fluticasone propionate [Flonase Allergy Relief] 50 mcg/actuation spray,suspension 1 spray intranasal DAILY PRN (Reason: allergy symptoms) Qty: 15.8 3RF Rx Instructions: administer into each nostril nystatin 100,000 unit/gram powder 1 applic topical BID PRN (Reason: rash) Qty: 60 0RF Spiriva Respimat 1.25 mcg/actuation mist 2 puff inhalation DAILY Qty: 4 2RF isosorbide mononitrate 60 mg tablet extended release 24 hr 60 mg PO QAM Qty: 90 3RF bumetanide 1 mg tablet 1 mg PO DAILY Qty: 90 3RF cholecalciferol (vitamin D3) [Vitamin D3] 25 mcg (1,000 unit) Tablet 25 mcg PO DAILY potassium chloride 20 mEq Tablet Extended Release 30 meq PO DAILY Rx Instructions: TAKE WITH FOOD albuterol sulfate 90 mcg/actuation Hfa Aerosol Inhaler 1 puff INHALATION Q6H PRN (Reason: Shortness Of Breath Or Wheezing) diclofenac sodium 1 % Gel 2 g TOPICAL QID PRN (Reason: Pain) Rx Instructions: apply to single elbow, wrist or hand; for hand includes palm/fingers/back of hand lisinopril 2.5 mg tablet 2.5 mg PO DAILY omega-3 fatty acids 1,000 mg Capsule 1,000 mg PO BID Held apixaban 5 mg tablet 5 mg PO BID Qty: 180 3RF Hold Instructions: Provider's Order - until further notice Rx Instructions: : OF 03/06/25 THIS MED ON HOLD UNTIL FURTHER NOTICE. Discharge Orders: Discharge Order (Routine); Ordered 03/10/25 Ordered By: Iraida Quan Admission Data Admit Date/Time: 03/08/25 18:25 Attending Provider: Carmelo Grider Admit Provider: Maulik Mendiola Primary Care Provider: Odell Huffman Other Providers: Maulik Mendiola; Zeus Leija; [facility] Hospital Stay Data Consultations 03/08/25 17:54 ED Decision to Admit Stat 03/08/25 18:26 Consult Urology Routine Diagnostic Imagining Performed Abdomen/Pelvis CT 03/08/25 15:32 Clinical History: Gross hematuria. Evaluate for bladder cancer Technique: Axial computed tomography images were obtained of the abdomen and pelvis after the administration of intravenous contrast. No prior CT is available for comparison. Findings: There is fatty infiltration of the liver. The liver is also mildly nodular in contour, which may be due to mild cirrhosis. No definite liver mass lesion is seen, though small liver masses cannot be excluded given the heterogeneity of the liver. The portal vein is patent. Gallstones are present. There is no definite sign of acute cholecystitis. No bile duct dilatation is noted. The spleen is of normal size. No focal splenic lesion is evident. The pancreas appears normal with no sign of acute or chronic pancreatitis and no mass lesion noted. The pancreatic duct is of normal caliber. There is a 3 cm right adrenal nodule, indeterminate in nature. The left adrenal gland appears normal No definite renal or proximal ureteral calculi are seen on this contrast-enhanced study. There is no hydronephrosis or perinephric stranding. No renal mass lesion is identified. There was a 4 cm right renal cyst. The aorta is of normal caliber. No abdominal adenopathy is seen. There is prominence of the gastric wall that is likely due to the decompressed state. There is no sign of small bowel obstruction. The colon appears unremarkable. The appendix appears normal also. No free intraperitoneal fluid or air is identified. The bladder is decompressed, containing a Callahan catheter. There appears to be irregular soft tissue attenuation material within the bladder. The iliac arteries are of normal caliber. No pelvic adenopathy is noted. There are small bilateral inguinal hernias containing only fat. The prostate is enlarged measuring 4.7 cm There is mild bilateral lung base atelectasis. There is a minimal right pleural effusion. The heart is enlarged. There is a fusion of L2-S1. No fracture is identified. No focal osseous lesion is seen Impression: 1. Material within the urinary bladder that could be due to either blood products or a mass. Evaluation is limited by the decompressed state, with a Callahan catheter present. CT cystogram and/or bladder ultrasound could be obtained for further evaluation 2. Indeterminate right adrenal nodule. If malignancy is found, a metastasis is possible 3. Fatty infiltration of the liver and suspected mild cirrhosis. There is heterogeneity of the liver that could be due to nonuniform fatty infiltration and areas of fibrosis. Subtle metastases cannot be excluded 4. Cholelithiasis without evidence of acute cholecystitis 5. Right renal cyst 6. Enlarged prostate. Correlation with PSA levels may be useful 7. Small bilateral inguinal hernias containing only fat 8. Minimal right pleural effusion and bilateral lung base atelectasis ACT 112: Positive. There are findings on this exam that require communication between the performing entity and the patient following Patient Test Result Information Act ([place] ACT 112) guidelines. Electronically signed by Mauro Rivas 03-08-2025 6:31 PM Chest X-Ray 03/09/25 09:20 XR chest 1V portable CLINICAL HISTORY: possible preop COMPARISON STUDY: 08/30/2023 FINDINGS: Stable CABG. Stable prominent cardiomegaly without pulmonary vascular congestion. No consolidation or pleural effusion. No pneumothorax. IMPRESSION: No acute findings. ACT 112: Negative or not required by law. Electronically signed by: Krystian Pardees M.D. 03/09/2025 11:40 AM Pending Results Patient Have Any Pending Studies at Discharge: No Discharge Instructions Given to Patient (Per Discharging Provider) Mr. Irwin, You were hospitalized after having blood in your urine (hematuria). This was found to be from a mass in your bladder. Given that your blood has cleared up - no procedure was done while you were inpatient. Plan is for outpatient procedure with urology. Urology should contact you with an appointment next week. If you do not hear from them by Thursday, please call their office [phone] There was concern that you had an urinary infection with the bleeding and were given IV antibiotics. You will be continued on oral antibiotics at discharge. Please continue to hold your Eliquis. No other changes to your home medications. please call urology with any worsening hematuria, painful urination or difficulty urinating. Someone is marketing and public relations manager 19/01. If you are unable to urinate please return to the ED. Make sure you are staying extra hydrated to encourage urination. Please follow up with your PCP within one week. Activity: You can do normal everyday activities as your body allows. Take rest breaks if you feel tired. Do not overexert. Stop activity if you have pain, shortness of breath or feel dizzy. Follow-up appointments: Make an appointment with your primary care physician within one week of discharge. A copy of this summary will be sent to them. Every time you see your primary care physician, or any other doctor, bring your medication list, and a list of questions. CONTACT YOUR PRIMARY CARE PROVIDER if you experience any of the following: Shortness of breath or difficulty breathing Fevers or chills Feeling tired with normal activity or experiencing dizziness or fainting Difficulty following your treatment plan, or difficulty taking medications CALL 911 OR GO TO THE EMERGENCY DEPARTMENT if you experience any of the following: Severe abdominal pain or nausea/vomiting Severe chest pain, or chest pain that radiates (moves) to your jaw or arm Sudden, severe shortness of breath or difficulty breathing - inability to urinate Thank you for allowing us to participate in your care. Total Time Total Time Spent Total Time Spent (In Minutes): Time spent day of discharge 45 minutes including direct patient care, medication reconciliation, documentation, review of labs and images, and coordination of care. Coding Level of Care Code 89374 INP/OBS DISCH >30 MIN Diagnoses Hematuria R31.9 S/P CABG x 4 Z95.1 COPD, mild J44.9 CKD (chronic kidney disease) N18.9"
--- NOTE | 2025-03-10 22:40 | Electrocardiogram Report ---
Test Reason : Blood Pressure : */* mmHG Vent. Rate : 57 BPM Atrial Rate : * BPM P-R Int : * ms QRS Dur : 166 ms QT Int : 454 ms P-R-T Axes : * -78 4 degrees QTcB Int : 441 ms Atrial fibrillation with slow ventricular response with premature ventricular or aberrantly conducted complexes Left axis deviation Right bundle branch block Inferior infarct , age undetermined Abnormal ECG When compared with ECG of 30-Aug-2023 01:38, Nonspecific T wave abnormality now evident in Inferior leads Confirmed by Eddie Luna ([id number]) on 03/10/2025 10:39:41 PM Referred By: REFERRED SELF Confirmed By: Eddie Luna
== END 2025-03-10 17:30 | disposition home or self-care (01) ==
LOC: ED 14:20 → EDINP 14:20 → SUATTDRO 18:25 → 3N 23:10